=== PATIENT | female | born 1935 | race Caucasian/White ===

== ENCOUNTER 2022-08-17 10:48 | Outpatient (OUT) | payer MEDICARE, SELFPAY ==
--- NOTE | 2022-08-17 10:55 | XR_ITS ---
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 T score 0.7. WHO classification: Normal. Lowest bone mineral density left femoral neck measures 0.751 g/sq cm. T score -2.1. WHO classification: Osteopenia IMPRESSION: Osteopenia. Moderate fracture risk Electronically authenticated by: ANGE WHEELER Date: 08/18/2022 06:22
[2022-08-17 11:44] LABS: Basophils Absolute Auto 0.1 10^3/uL (0.0-0.1); Basophils Percent Auto 0.9 % (0.2-2.0); Eosinophils Absolute Auto 0.2 10^3/uL (0.0-0.7); Eosinophils Percent Auto 3.1 % (0.9-7.0); Hematocrit 40.1 % (36.0-48.0); Hemoglobin 13.5 g/dL (12.0-16.0); Immature Granulocytes Abs Auto 0.01 10^3/uL (0.00-0.03); Immature Granulocytes Pct Auto 0.2 % (0.0-0.5); Lymphocytes Absolute Auto 1.6 10^3/uL (1.2-3.8); Lymphocytes Percent Auto 24.3 % (20.5-60.0); Mean Corpuscular HGB Conc 33.7 g/dL (29.9-35.2); Mean Corpuscular Volume 89.1 fL (81.0-99.0); Mean Platelet Volume 9.7 fL (9.5-13.5); Monocytes Absolute Auto 0.5 10^3/uL (0.3-0.8); Monocytes Percent Auto 7.2 % (1.7-12.0); Neutrophils Absolute Auto 4.2 10^3/uL (1.4-6.5); Neutrophils Percent Auto 64.3 % (43.0-75.0); Platelet Count 296 10^3/uL (150-450); Red Cell Distribution Width 12.5 % (11.0-15.0); White Blood Count 6.5 10^3/uL (4.0-11.0)
[2022-08-17 12:00] LABS: Alanine Aminotransferase 21 U/L (14-59); Albumin Globulin Ratio 1.1; Albumin Level 3.6 g/dL (3.4-5.0); Alkaline Phosphatase 70 U/L (46-116); Anion Gap 12.5; Aspartate Amino Transferase 22 U/L (15-37); BUN Creatinine Ratio 13.5; Bilirubin Direct 0.2 mg/dL (0.0-0.2); Bilirubin Total 0.8 mg/dL (0.2-1.0); Calcium 8.8 mg/dL (8.5-10.1); Carbon Dioxide 26.5 mmol/L (21.0-32.0); Chloride 107 mmol/L (98-107); Chol HDL Ratio 2.8; Cholesterol 181 mg/dL (<=200); Estimated GFR (African America >60 (>=60); Estimated GFR (Non-African Ame 50 (>=60); Globulin 3.2 g/dL; Glucose 96 mg/dL (74-106); HDL Cholesterol 64 mg/dL (40-60); Sodium 142 mmol/L (136-145); Total Protein 6.8 g/dL (6.4-8.2); Triglycerides 163 mg/dL (<=150); VLDL CHOLESTEROL 32.6 mg/dL
[2022-08-17 12:17] LABS: Estimated Average Glucose 111 mg/dL; Glycohemoglobin A1C 5.5 % (4.5-6.2)
== END 2022-08-17 10:49 ==
LOC: RAD 10:50
PROVIDERS: PCP Family Medicine; Visit Provider Family Medicine
DX: M85.851 Other specified disorders of bone density and structure, right thigh (principal); Z79.899 Other long term (current) drug therapy; R73.03 Prediabetes; E78.5 Hyperlipidemia, unspecified
CPT/HCPCS: 36415; 77080; 80048; 80061; 80076; 82306; 83036; 85025

== ENCOUNTER 2023-02-22 13:15 | Emergency (ER) | payer MEDICARE, SELFPAY ==
[2023-02-22 13:20] VITALS: PULSE 78; RESP 20; TEMP 36.7; O2SAT 95; BMI 25.4
--- NOTE | 2023-02-22 13:28 | ED.GENADUL1 ---
HPI - General Adult General Chief complaint: Allergic Reaction Stated complaint: PAIN BACK LEGS/NEW MEDS Time Seen by Provider: 02/22/23 13:17 Source: patient Mode of arrival: walk-in Limitations: no limitations History of Present Illness HPI narrative: [age] female presents for pain and both of her lower legs posteriorly. She was put on prednisone and Levaquin about five days ago and she was told by the pharmacist that if she gets pain in her lower legs posteriorly she should go get it checked. There's been no injury and she's been able to walk without difficulty. This is a 2nd course of an antibiotic that she's been on for a cold. She's been having cold symptoms for about three weeks. Related Data Home Medications Medication Instructions Recorded Confirmed alendronate 70 mg tablet 70 mg PO .weekly 02/22/23 02/22/23 cyclosporine 0.05 % eye drops in a 1 drp ophthalmic (eye) DAILY 02/22/23 02/22/23 dropperette latanoprost 0.005 % eye drops 1 drp ophthalmic (eye) .qhs 02/22/23 02/22/23 levofloxacin 750 mg tablet 750 mg PO Q24H 02/22/23 02/22/23 pantoprazole 40 mg tablet,delayed 40 mg PO Q12H 02/22/23 02/22/23 release prednisone 10 mg tablet 10 mg PO .COMPLEX 02/22/23 02/22/23 simvastatin 40 mg tablet 40 mg PO .qhs 02/22/23 02/22/23 Allergies Allergy/AdvReac Type Severity Reaction Status Date / Time No Known Drug Allergies Allergy Verified 02/22/23 13:26 Review of Systems ROS Narrative A ten point review of systems is negative except as noted above. PFSH PFSH Social History Smoking status: Never smoker Exam Narrative Exam Narrative: Nurses note and vital signs reviewed and patient is not hypoxic. General: The patient appears well and in no apparent distress. Patient is resting comfortably on cart. Skin: Warm, dry, no pallor noted. There is no rash noted. Head: Normocephalic, atraumatic Eye: Normal conjunctiva, no drainage Ears, Nose, Mouth, and Throat: oral mucosa is moist. Nares patent. Cardiovascular: Regular Rate and Rhythm Respiratory: Patient is in no distress, no accessory muscle use, lungs are clear to auscultation, no wheezing, rales or rhonchi Back: non-tender GI: soft and nontender Musculoskeletal: no swelling in her calves. No swelling in her ankles. Achilles tendons are intact. Neurological: A&O, normal speech Psychiatric: Cooperative Constitutional Vital Signs, click to edit/add: Last Vital Signs Temp 98.1 F 02/22/23 13:20 Pulse 78 02/22/23 13:20 Resp 20 02/22/23 13:20 Pulse Ox 95 02/22/23 13:20 O2 Del Method Room Air 02/22/23 13:20 Course Vital Signs Vital signs: Vital Signs Temperature 98.1 F 02/22/23 13:20 Pulse Rate 78 02/22/23 13:20 Respiratory Rate 20 02/22/23 13:20 Pulse Oximetry 95 02/22/23 13:20 Oxygen Delivery Method Room Air 02/22/23 13:20 Temperature 98.1 F 02/22/23 13:20 Pulse Rate 78 02/22/23 13:20 Respiratory Rate 20 02/22/23 13:20 Pulse Oximetry 95 02/22/23 13:20 Oxygen Delivery Method Room Air 02/22/23 13:20 Medical Decision Making MDM Narrative Medical decision making narrative: her workup is negative. There is no clinical evidence of tendon rupture. We will discontinue the Levaquin. Findings are discussed with the patient. Differential Diagnosis Differential Diagnosis: tendon rupture, rhabdomyolysis, medication side effect Lab Data Lab results reviewed: Yes I reviewed the patient's lab results Labs: Lab Results 02/22/23 Range/Units 13:45 WBC 12.8 H (4.0-11.0) 10^3/uL RBC 4.63 (4.20-5.40) 10^6/uL Hgb 13.5 (12.0-16.0) g/dL Hct 41.3 (36.0-48.0) % MCV 89.2 (81.0-99.0) fL MCH 29.2 (26.7-34.0) pg MCHC 32.7 (29.9-35.2) g/dL RDW 12.7 (11.0-15.0) % Plt Count 327 (150-450) 10^3/uL MPV 9.6 (9.5-13.5) fL Neut % (Auto) 82.6 H (43.0-75.0) % Lymph % (Auto) 12.1 L (20.5-60.0) % [place] % (Auto) 3.9 (1.7-12.0) % Eos % (Auto) 0.1 L (0.9-7.0) % Baso % (Auto) 0.2 (0.2-2.0) % Neut # (Auto) 10.5 H (1.4-6.5) 10^3/uL Lymph # (Auto) 1.5 (1.2-3.8) 10^3/uL [place] # (Auto) 0.5 (0.3-0.8) 10^3/uL Eos # (Auto) 0.0 (0.0-0.7) 10^3/uL Baso # (Auto) 0.0 (0.0-0.1) 10^3/uL Abs Immat Gran (auto) 0.14 H (0.00-0.03) 10^3/uL Imm/Tot Granulo (auto) 1.1 H (0.0-0.5) % Sodium 140 (136-145) mmol/L Potassium 3.5 (3.5-5.1) mmol/L Chloride 102 (98-107) mmol/L Carbon Dioxide 27.9 (21.0-32.0) mmol/L Anion Gap 13.6 BUN 17.0 (7.0-18.0) mg/dL Creatinine 1.19 H (0.55-1.02) mg/dL Est GFR ( Amer) 52 L (>=60) Est GFR (Non-Af Amer) 43 L (>=60) BUN/Creatinine Ratio 14.3 Glucose 149 H (74-106) mg/dL Calcium 9.4 (8.5-10.1) mg/dL Myoglobin 65 (9-82) ng/mL Discharge Plan Discharge Chief Complaint: Allergic Reaction Clinical Impression: Adverse reaction to drug Patient Disposition: Home, Self-Care Time of Disposition Decision: 14:30 Condition: Good Mode of Transportation: Private Vehicle Prescriptions / Home Meds: No Action alendronate 70 mg tablet 70 mg PO .weekly cyclosporine 0.05 % dropperette 1 drp OPHTHALMIC (EYE) DAILY latanoprost 0.005 % drops 1 drp OPHTHALMIC (EYE) .qhs pantoprazole 40 mg tablet,delayed release (DR/EC) 40 mg PO Q12H prednisone 10 mg tablet 10 mg PO .COMPLEX Rx Instructions: 10 mg orally TAKE 6 TABLETS BY MOUTH ONCE DAILY FOR 3 DAYS THEN 4 ONCE DAILY FOR 3 DAYS THEN 2 ONCE DAILY FOR 3 DAYS THEN 1 ONCE DAILY FOR 3 DAYS; simvastatin 40 mg tablet 40 mg PO .qhs levofloxacin 750 mg tablet 750 mg PO Q24H Patient Comments: started on 02/17 Instructions: Adverse Drug Reaction (ED) Additional Instructions: discontinue Levaquin Stand Alone Forms: Portal Instructions Referrals: Jerald Faye MD [Primary Care Provider] - 1 week
[2023-02-22 13:56] LABS: Basophils Percent Auto 0.2 % (0.2-2.0); Eosinophils Percent Auto 0.1 % (0.9-7.0); Hematocrit 41.3 % (36.0-48.0); Hemoglobin 13.5 g/dL (12.0-16.0); Immature Granulocytes Abs Auto 0.14 10^3/uL (0.00-0.03); Immature Granulocytes Pct Auto 1.1 % (0.0-0.5); Lymphocytes Absolute Auto 1.5 10^3/uL (1.2-3.8); Lymphocytes Percent Auto 12.1 % (20.5-60.0); Mean Corpuscular HGB Conc 32.7 g/dL (29.9-35.2); Mean Corpuscular Hemoglobin 29.2 pg (26.7-34.0); Mean Corpuscular Volume 89.2 fL (81.0-99.0); Mean Platelet Volume 9.6 fL (9.5-13.5); Monocytes Absolute Auto 0.5 10^3/uL (0.3-0.8); Monocytes Percent Auto 3.9 % (1.7-12.0); Neutrophils Absolute Auto 10.5 10^3/uL (1.4-6.5); Neutrophils Percent Auto 82.6 % (43.0-75.0); Platelet Count 327 10^3/uL (150-450); Red Blood Count 4.63 10^6/uL (4.20-5.40); Red Cell Distribution Width 12.7 % (11.0-15.0); White Blood Count 12.8 10^3/uL (4.0-11.0)
[2023-02-22 14:18] LABS: Anion Gap 13.6; BUN Creatinine Ratio 14.3; Calcium 9.4 mg/dL (8.5-10.1); Carbon Dioxide 27.9 mmol/L (21.0-32.0); Chloride 102 mmol/L (98-107); Estimated GFR (African America 52 (>=60); Estimated GFR (Non-African Ame 43 (>=60); Glucose 149 mg/dL (74-106); Myoglobin 65 ng/mL (9-82); Potassium 3.5 mmol/L (3.5-5.1); Sodium 140 mmol/L (136-145)
== END 2023-02-22 14:47 | disposition home or self-care (01) ==
PROVIDERS: Emergency Provider Emergency Medicine; PCP Family Medicine
DX: M79.605 Pain in left leg (principal); M79.604 Pain in right leg; T36.8X5A Adverse effect of other systemic antibiotics, initial encounter
CPT/HCPCS: 36415; 80048; 83874; 85025; 99283

== ENCOUNTER 2023-09-21 09:21 | Outpatient (OUT) | payer MEDICARE, SELFPAY ==
--- OUTSIDE RECORDS SUMMARY | 2023-09-21 09:38 | XMS_ITS | CCD ---
Author Organization [facility] Care Team Providers Care Licensed Dispensing Optician Name Role Phone MICHAEL, DR JACINTO Tello Consulting Unavailabl e GRILLIS, DR JACINTO Tello Admitting Unavailabl e FAWWAD, SANCHEZ H Primary Care Unavailable GRILLIS, DR JACINTO Tello Attending Unavailabl e ZIEBER, DR MICHAEL Castillo Consulting Unavailable NADERER, DR JATINDER Rodriguez Attending Unavailable NADERER, DR JATINDER Rodriguez Consulting Unavailable NADERER, DR JATINDER Rodriguez Primary Care Unavailable NADERER, DR JATINDER Rodriguez Admitting Unavailable ZIEBER, DR MICHAEL Castillo Consulting Unavailable FAWWAD, SANCHEZ H Primary Care Unavailable FAWWAD, SANCHEZ H Admitting Unavailable FAWWAD, H Attending Unavailable FAWWAD, SANCHEZ H Consulting Unavailable FAWWAD, SANCHEZ H Primary Care Unavailable FAWWAD, SANCHEZ H Admitting Unavailable FAWWAD, SANCHEZ H Attending Unavailable NADERER, JATINDER Rodriguez Primary Care Unavailable Stalter, Bean Admitting Unavailable Stalter, Bean Attending Unavailable NADERER, JATINDER Attending Unavailable NADERER, JATINDER Attending Unavailable NADERER, JATINDER Attending Unavailable NADERER, JATINDER Attending Unavailable Problems Active Problems Problem Classification Problem Date Documented Da te Episodic/Chronic Abdominal hernia (1 source) Diaphragmatic hernia without obstruction or gangrene; Translations: [DIAPH HERNIA W/O OBST/GANGRENE] Onset: 03-12-2022 Episodic Disorders of lipid metabolism (1 source) Hyperlipidemia, unspecified; Translations: [HYPERLIPIDEMIA UNSPECIFIED] Onset: 08-06-2021 Chronic Esophageal disorders (4 sources) Gastro-esophageal reflux disease without esophagitis; Translations: [GERD WITHOUT ESOPHAGITIS] Onset: 03-10-2022 Chronic Other gastrointestinal disorders (1 source) Dysphagia, unspecified; Translations: [DYSPHAGIA UNSPECIFIED] Onset: 03-12-2022 Episodic Other gastrointestinal disorders (1 source) Personal history of other diseases of the digestive system; Translations: [PERSONAL HX OTH DZ DIGESTIVE SYSTEM] Onset: 03-12-2022 Episodic Unclassified (3 sources) LOW BACK PAIN, UNSPECIFIED; Translations: [LOW BACK PAIN, UNSPECIFIED] Onset: 10-01-2021 Past or Other Problems Problem Classification Problem Date Documented Da te Episodic/Chronic Diabetes mellitus without complication (4 sources) Prediabetes; Translations: [PREDIABETES] Onset: 07-30-2021 Episodic Other aftercare (1 source) Other vermin exterminator (current) drug therapy; Translations: [OTH RESIDENTIAL CURRENT DRUG THERAPY] Onset: 08-06-2021 Episodic Other gastrointestinal disorders (1 source) Other constipation; Translations: [OTHER CONSTIPATION] Onset: 08-06-2021 Episodic Unclassified (1 source) LOW BACK PAIN, UNSPECIFIED; Translations: [LOW BACK PAIN, UNSPECIFIED] Onset: 09-19-2021 Results Test Name Value Interpretation Reference Range Facility Coding Summaryon 06-09-2023 Coding Summary HTMLBase 64 RrzzumtmVSj8zSo+PGh lYWQ+CU9MHOLvL48iiY CvaZ2kS3ZBMAvEIhxvH XSXZRyXPaYfmpBbPN4h aXNjZXJu IC8+CR8zYBSdCxmeiWN mi6X9oSE7W57hiy3kOS cwoWP2WMBmLbOtgbeln 8nptHn3LWfyMirhGhRj NEXmgM60FMF4iC24Db8 3wAQhjHGti5wzjOx3Xv OeNIIwIGX0aLmbNKtsv 9QqXSDvD68poYRrf8H3 IGNvbGxhcHNlOyBlbXB 3dQ3oBKgronqso4kcll aiVtv8rv35aKGqo2S3s VC0I0EozkK7FVKbnEGa MzgehAKJbQ5ohdlpy1b ocelqNmIaNVCoHSv0JU n3WSAfeZqdHqAnWT16H FY2MZZlkvDfO4PmKKRd lFvfOsO5h7H9Hs9OF4T QIejvT6FXKHAINQiojU Q+SQ23jx80R4PsEjgkT so3VNJkMOB1pUC4jJ5y MSCqYRoqg9Q5qFG8O9F vtuGlqr5kc9niHOBfES vwT85arFMhm0A7LVYdv YQ5DHNcxRieXlNfmV25 Oyc+TXLkfWhoo5OcZre kw3agu1aihNj7IbdyNP QrwjZscFeyPOY1i4TwN g0sQTYjhSF4kMC9iN0l GlLnUrT5HPlhA839XgI lhVXbXbrwI86bN2UmkB A+OUNhTjc8BLQrlUawC B5yB5AqDZAbijuusIXa kExtGK7hONCxhrbbSSB aqH8sVTUzN8n9SrHwSy R1ZAvoU0OrOEZfkocmL p68mX5jDbJnSlL8JXfa M0VqewR9HBMhnLKoONl fSBC0W83aa8W8MOFjZJ PpRER3kFV7tU8yvOxvs jogbGVmdDsgdmVydGlj OGqfNNfsC119WPBuqGc nPkNvZGluZyBEYXRlOi AgMDQvMTAvMjAyNDwvd GQ+CWTvOHF7hKrlUIZn bGFmRIgaNt2viUljaPo sEM8bGLChefexMFGoiN 3hNLKnmMTxoQhbQG1vO YHqiwunh462NxVcVMD5 WDCvqBIvH2BcjU0wAmL iHSRkOSEsA3FmmWLqID chF065LJisYuT6GPTkt kLhA4TgRLEhfNckEjY5 z1F3Hd8Th6MhnnzlA4Y seDQxEuWxHeacNDs6S6 RkPjwvdHI+EV06AGAbT E43YBh2AUH8pRwzCKgx HWSmD2AjqN3jDaByKPQ kZGRkOyc+PHRhYmxlIH dpZHRoPScxMDAlJyBzd PruPI8kEp1zAKVxTMPy xGvokOPtLvTul6rrAIK iOYjaVU9ebQwuJ8AlkL I5TZXeg0a7Fg24M33kV 3JvdXA+AJAgyEG3bJD9 xH6hXqHfPgW8YVckZ38 5UcSlwVEdVkdgb5fbn9 rlhWk5NcH9KREcexQzh DouCXS8h2SiEr84Q24m IHdpZHRoPSIxNSUiIHZ flCdnss0akM6zLn7+PG KhiRR7rDD1gB1hGcVvW cR7TDbdT170FrHepFBm Ijxfz7lqk6jtbZd4PwD oOEZhiiHkxPbsTXQ2p2 PfUz94J6XhyYryb0JiZ dg3bv15rQJmb9F1pTY8 Y9EoBADpnvwfqCEolOk vPN3uVKLlzhikKZBnaK 6pYHOoL4n0WhIwFlC6E NojU7XlxuX9FGDnjSEg MXHpkAYTxE4stfqao2l epkneXcBzTOEbXSa2FY z1AXKewEbdPkXjEFT5U kP6VGO2gHOyiT7alWli cnixjP5zCls+OCF9uOI dmQBJXQ3wQegqhKH+PH UtCCH5dEsdKWauCJGwd W7rXSBwY2r5KtDgKeU3 XMnuV5LhrxV4AEZrpNO bWYGwoDTIbR1clkmei7 hcxanuJaChPREoXAj7D Ta4FJQauJfnZnJqOLY6 EqV7HFZ6zAVtkX9gfSg qgnetkO3qCwa+QmlydG quTQQ5LEm3P3TaLkf0O KWoaMuxWY9nfUXgNBbr Bk6ekCicsOvgSX3bQFH jyrmod742GzNfn2nvUS GyhQOmERmwPZW9W07kd 6R5ILMvYGDwNWU9tBS7 zI0cxQjwmftdjYVzmLe gdmVydGljYWwtYWxpZ2 97VBIelAalKeYrKWu3F 3FoVps2YENjkGwcIL7j cBBwGWseOn7coFszuGx wHP2lWXQizejfl488Gj Kco1jcOCHccNKvLFttF AO1K50xt5H9ZROmFTCf GXW6mRU4eV1ubCgteqr gbGVmdDsgdmVydGljYW qtUPhpK843MFOjwBwkZ jQzbTk7P2UzRcu3IARl dQuaAV8jgIHmFIzpHh0 hfSlqvJgbFM8hLAZfdw vxu402JfNyv9xyGMTgc XDrDFehNBM0V94ho7E1 JSPwQEWkJPE7cFV2xV4 hbGlnbjogbGVmdDsgdm BpyVhxPDcdYIpmO152U HRvcDsnPlBhdGllbnQg XMrwMEa2O7XwUhcxtRE +SB64FCCpIR25qOAdkQ Pcj8snuWa4MaXuARKpL YO4kEepWVvug5VhNTBo C82vmQUoc9G1KXRrqXw wnMGqLqMscNR1rR4rBP eorkizb8ksjdxdAbrlh 8zztu75eE98M21fJUra ZHRoPSIzMCUiIHZhbGl pid0psU3rJy3+PGNvbC V0sLX9cB7qESWmGeQ4M AtkA702BdJtaXAsYkmi e3jri4vmnOv9SjS4IPM gnmZqiNopNOY3f7LyLb 65N06gLEwhVGVxVTYuP KHoWIKlrFwdzs6ntY7j Ii8+KDYynYH5wIS1uP4 fEcFkVaA9QQysF253Iy PdxPQnMeuaL89hI9Xvp XA+UPHuVwr7IZGrvNle MC1phWScPXiyWo1aHUT 8NmMsArVrZGkiL9BcMR CyzahomdcjfJH9ILJyE YWwpO83Yq7jhCmeVLJp fIYOoN8ecnnci8dgeit zOsQxZGBiQFz7XGd2WV XogLmmDtCtYDU5VrS9E KS5wBMqaT8boLaorasi pW8lK7PbZZZlghooDq7 2xK6fVwBdNiY2TAswId c+Z63QSDZCKKISXM4AW MDRTF60ZP36wZRnr5I3 uNT4I9GiHHDjvmmuyqs bzIZ2EYFlJLGclM86mA ZsIQnbOe2ab7J6j826E YQwOBGqoO92Ap7gxJpu XVEuwXLRxT6zdzmlv3y chkjyTbQtJMChIIr6NY z9YEGtvUobNiLgLRJ9Y bI9CIB2zTDlvW9ctIle ovcrpL2dZpu+MDQvMDg vMTkzNzwvdGQ+PHRkIH P6yFnuISsvOYLmeL9aQ XGqY2o8CmZuQoV4QRon N4XkTHEnorinSw72yZ5 qOpJqVlM4SOyrV5Hxez R1ZLLsuBJbNHhgLYH3O 00tz1Q2XIBzTJApCTJ9 gKL4iA3qxZwosipzrSY mdDsgdmVydGljYWwtYW udJ095FUDfjJqgUcb3S NnmKWZaDJ94MQ86yJRs l9B2bJM1L5HuGRGvkgt hbvwovCV2UPDdGWIrlV 07ePElNDgzKl9ui4L7y 806HCVdCGYrwX70Vv9i pApwGAPomRXBmO2piry gm9rrfwckWnAjBBJyLV o6JYk3BJGztVaxWxZwM PK5QjE8XIQ0qAOyyT1k qFqovwbwoK8yUtu+RkV KHLsRLM80CX84oNEnf2 A4mFI7R3SvBVZpdldxx msgyVV0QOXdHKKlrR66 mUZrNFfgMu2vl3E7a58 5NKYrBXVohW65Kr7xjB bpLIPvmNFOqL0rbotht 9qisnxcOlZrVBGwPSi8 ZHd5VKMonVylYbPfMBD 2XbN3WIM6dDOqqC5kjG ogoqrspL7nEna+RW1lc imolyC6FJ51SK29F5Hi PjwvdGFibGU+PHRhYmx lIHdpZHRoPScxMDAlJy IwfObfQV2yNk0bCJAiY OKzyKpnqKDyCkRbc7jk MDAfNSugRI6prUktZ8F jrPX7ITGlm5c5Rw21C7 5eZ3UuoZB+VLIawMV2m JB7lO8qIaBeMuL9WUss W234BxJcoSUqSfeqs9x hg0ignKk2CcHwHUJptp NbxCgwFFZ5t2PwKn28A 29sIHdpZHRoPSIyMCUi PVUotLqchq7viY5nYw2 +NMNhuWQ5rRF3bH2jYz DlNyT7NMovI199BpNll LZiBxtpC81iD4LewJX+ TIBgFov8IZKfrFkrJE3 ijQFyXHwlKi1kKGP6So YwFfLyVKutV4GlUDRsw dmfasynpJE7HQUsSQWc vO22Jc4dkHatUh9cHIU gMZI7EFKbzROwH1RofK 2tDyTcMTRtGWAhP9Fsj TOfXMysI316WKdoFeT6 FNRckoMzT8HmOKUoaVw yRtH4s6P2Qq2FqGpgvE OdWB5oKeDkJKv2E5EyT yt5ZZGelVwxVC1riCJn WVfrSn7jrAeunIinFJ9 pJPQiiseaa944JhBta7 bjUJUqoXSfGHzwWBC2Y 96vq6N0CIDoCXUqJLZ3 bFB7bQ0hlHxaylbjvVS mdDsgdmVydGljYWwtYW ftT329MIUeoCbbSlCUW by3P9TqYvk3EBQnaScc YX9azBSjRKvgMs4znTq fiKmaOT1iLSFjkrtke7 29QwAmc5wbAMEtnZBzA KldTLO5V06he5D6WAOt PJIbZZJ6kRK6hF5mwBo nbjogbGVmdDsgdmVydG tbFEylQPcmN767VSZue SxcCx2OCgb9Z2QyZzr9 PQYqcOwnJN3aeIYsBYt dXj9vdPdlhPtrMX8tKX Qtiuwin142NsCkb3kuP CRrlRLfELylUGV8T93l q1F7PPNnCOBjHHM1sJT 6wT8xzHblrzyruXCmcY sgdmVydGljYWwtYWxpZ 246IHRvcDsnPlBheWVy OjwvdGQ+XO58yr10Q4J uJfsoKff8ANRkORT4pP W4vJ2xNFUdKXhou1N4k ME2R4CgeeRptz6jx2tt YXB (more content not included)... Normal [facility] CT Head or Brain w/o Contras ton 06-04-2023 CT Head or Brain w/o Contrast EXAMINATION: CT Head or Brain w/o Contrast, , 06/04/2023 1:27 PM EDT INDICATION: Fall, head injury HISTORY: Ordering Provider Reason for Exam: Technologist Note: Additional: COMPARISON: None. TECHNIQUE: CT scan of the head was performed without IV contrast. CT dose reduction technique was used, including Automated Exposure Control. FINDINGS: Paranasal sinuses are clear. Mastoid air cells are clear. Skull base is intact. There is some soft tissue swelling of the scalp in the frontal region. No acute skull fracture. Nasopharynx is normal. Prior cataract surgery. Mild generalized brain atrophy. No hydrocephalus. No mass effect. No shift of midline. No acute hemorrhage. No mass. [place] matter and white matter differentiation is intact. IMPRESSION: 1. No acute intracranial findings. No acute intracranial hemorrhage. 2. No skull fracture. Final Dictated by: Franc Caballero MD Dictated DT/TM: 06/04/23 1:53 Signed (Electronic Signature): Franc Caballero MD 06/04/23 2:35 pm Technologist: LT MISSY [facility] CT Spine Cervical w/o Contra ston 06-04-2023 CT Spine Cervical w/o Contrast EXAM TYPE: CT Spine Cervical w/o Contrast EXAM DATE AND TIME: 06/04/2023 1:27 PM EDT INDICATION: 87 years old Female with pain following trauma COMPARISON: None. TECHNIQUE: CT imaging of the cervical spine was obtained without contrast. Dose reduction techniques were achieved by using automated exposure control and/or adjustment of mA and/or kV according to patient size and/or use of iterative reconstruction technique. FINDINGS: There is straightening of the cervical lordosis. No subluxation. Vertebral body heights are maintained. No fracture. Craniocervical junction is normal in appearance. Atlantodental distance is not widened. No prevertebral soft tissue swelling. Moderate multilevel degenerative disc and facet arthropathy is present throughout the cervical spine. No CT evidence of severe spinal canal stenosis IMPRESSION: No acute fracture or traumatic malalignment. Final Dictated by: Sebas Ochoa MD Dictated DT/TM: 06/04/23 1:50 Signed (Electronic Signature): Sebas Ochoa MD 06/04/23 1:52 pm Technologist: LT MISSY [facility] ED Clinical Summaryon 2023 ED Clinical Summary [facility] - Emergency Department [address] [place] [id number] ED Clinical Summary PERSON INFORMATION Name: ADAM GUZMAN Age: 87 Years Sex: FEMALE : 1935 MRN: Acct#: Visit Reason: FALL- HEAD/NOSE LACERATION Arrival: 06/04/2023 12:48:15 Discharge: 06/04/2023 14:38:00 LOS: 000 01:50 Check In: 06/04/2023 12:48:15 Checkout:06/04/2023 14:38:00 Address: [address] [place] [id number] PCP: JATINDER HAZEL PROVIDER INFORMATION Provider Role Assigned Unassigned Stalter, Bean MD ED Provider 06/04/2023 12:54:32 Nury Mclaughlin BIT BENDER Nurse 06/04/2023 13:13:36 VITALS INFORMATION Vital Sign Triage Latest Temperature Tympanic Temperature Temporal Artery Pulse Rate O2 Sat 93 % 93 % Respiratory Rate 18 br/min 18 br/min Blood Pressure /98 mmHg /98 mmHg MEDICAL INFORMATION Medications Given: Medication Dose Route tetanus-diphth toxoids (Td) adult/adol (tetanus-diphth toxoids (Td)adult/adol) 0.5 mL Intramuscular bacitracin topical 500 unit(s) Topical bacitracin topical 500 unit(s) Topical Allergy Information: No known allergies PHYSICIAN DOCUMENTATION DISCHARGE INFORMATION: Discharge Disposition: Home Discharge Location: Home PATIENT EDUCATION INFORMATION Instructions: Sutured Wound Care, Shzb-xr-Gama; Abrasion, Nehx-tu-Upkr; Hypertension, Adult, Ydac-cm-Isvc; Facial Laceration, Ktlv-ve-Mwqp Follow-Up: With: Address: When: Follow up with primary care provider Within 3 to 5 days DIAGNOSIS: 1:Laceration of face; 2:Abrasion of face; 3:Abrasion of hand and fingers; 4:Abrasion of right knee; 5:Elevated blood pressure reading; Abrasion of unspecified finger, initial encounter Patient Understands: Yes - Patient/family/intensive care ambulance paramedic verbalizes understanding of instructions given Comment: [facility] ED Note-Nursingon 06-04-2023 ED Note-Nursing Pt ambulatory back to ED room 8 with at bedside. Pt C/O tripping and falling. Pt has skin tears on Bilateral hands, Rt knee, across the bridge of pt nose and above her nose on reji. Pt states she was not dizzy before the fall. Pt is A/Ox4. Pt denies any pain at this time.Pt denies any other symptoms at this time. Pt states just worried about my nose [facility] ED Patient Summaryon 024 ED Patient Summary [facility] - Emergency Department [address] [place], [place] [id number] PATIENT DISCHARGE INSTRUCTIONS Patient Information Name: ADAM GUZMAN Age: 87 Years Date of : 1935 [facility]: [id number] Reason For Visit: FALL- HEAD/NOSE LACERATION Arrival Time: 06/04/2023 12:48:15 Primary Care Physician: JATINDER HAZEL Attending Physician: Bean Starkey MD Comment: Visit Diagnosis: Diagnoses This Visit Abrasion of face (S00.81XA) Abrasion of hand and fingers (S60.519A) Abrasion of right knee (S80.211A) Abrasion of unspecified finger, initial encounter (S60.419A) Elevated blood pressure reading (R03.0) Laceration of face (S01.81XA) The [facility] at [facility] is open Wednesday through Wednesday from 9A to 6P and Wednesday and Wednesday from 9A to 5P Prescription Information: If you have been given a prescription for narcotics, seek immediate medical attention if you have any difficulty breathing or any sudden status changes such as confusion and sleepiness. If you or anyone you know is experiencing suicidal thoughts, mental health, alcohol and/or drug addiction problems; contact the [facility] 21/09 Crisis Hotline -Text 2OWGW ai 449223. If you received any narcotics, sedation, or any other medication that causes drowsiness for the next 24 hours, unless otherwise directed: ? Do not drive a car. ? Do not operate machinery such as power tools, lawn mowers, drills, sewing machines, or stoves ? Avoid alcoholic beverages and drugs for allergies, nerves, or sleep ? Do not make important personal or business decisions or sign any legal documents With: Address: When: Follow up with primary care provider Within 3 to 5 days Medication Information: The exam and treatment you received today in the [facility] Emergency Department were for an urgent problem and are not intended as complete care. It is important for you to follow up with a doctor, nurse practitioner, or physician?s assistant director for ongoing care. If your symptoms become worse or you do not improve as expected and you are unable to reach your usual health care provider, you should return to the Emergency Department, we are available 24 hours a day. For those patients who have received Radiology results, the interpretation of your X-ray as given to you by our Emergency Department physician is only a preliminary report. The Radiologist will review your films and if there is a change in the diagnosis you will be notified by phone. Please make sure you have provided a working phone number so we can reach you if necessary. In the event that you had a lab culture while you were a patient in the Emergency Department, you will be notified by phone if there is a need to change your antibiotic. Please make sure you have provided a working phone number so we can reach you if necessary. [facility] Emergency Department has provided you with a complete list of medications post discharge. Please inform your investment executive/provider of your visit and for further instruction on these medications. Any specific questions regarding your chronic medications and dosages should be discussed with your primary care physician(s) and/or pharmacist. Additional medications on your home medication list not specifically addressed. Please contact the ordering physician if you have questions about these medications. alendronate (alendronate 70 mg oral tablet) dorzolamide ophthalmic latanoprost ophthalmic (latanoprost 0.005% ophthalmic solution) 1 Drops Ophthalmic (the eye) once a day (at bedtime). pantoprazole 40 Milligram Oral (given by mouth) every day. simvastatin (simvastatin 40 mg oral tablet) Visit Information Allergies: Substance Reaction Symptoms Type Comments No known allergies Drug Vital Signs: Vitals and Measurements this Visit (last charted value for your 06/04/2023 visit) Vital Signs This Visit Temperature Oral: 36.4 DegC Heart Rate Monitored: 74 bpm Respiratory Rate: 18 br/min Systolic Blood Pressure: 190 mmHg Diastolic Blood Pressure: 77 mmHg SpO2: 93 % Oxygen Therapy: Room air Measurements This Visit Height/Length Measured: 165 cm Weight Measured: 77.1 kg Weight Dosin.100 kg Body Mass Index: 28.32 kg/m2 Problems List: Problem Onset Comments Facial laceration Fall Patient Education Sutured Wound Care Suture removal in 5 to 7 days, monitor for signs of infection. Sutures are stitches that can be used to close wounds. Some stitches break down as they heal (absorbable). Other stitches need to be taken out by your doctor (nonabsorbable). Taking good care of your wound can help to prevent pain and infection. It can also help your wound heal more quickly. Follow instructions from your doctor about how to care for your sutured wound. Supplies needed: ? Soap and water. ? A clean, dry towel. ? Solution to clean your wound, if needed. ? A (more content not included)... [facility] UA [id number] 06-04-2023 UA RBC None Seen [facility] Comment on above: Order Comment: Urina lysis Microscopic order added on by [employer] Expert Rules system. Performed By: #### 5 [id number], [id number] #### [facility] (DEFAULT) [address] [place] [address] UA WBC None Seen [facility] Comment on above: Order Comment: Urina lysis Microscopic order added on by [employer] Rules system. Performed By: #### 5 [id number], [id number] #### [facility] (DEFAULT) [address] [place] [address] UA Amorph. 1+ [facility] Comment on above: Order Comment: Urina lysis Microscopic order added on by [employer] Rules system. Performed By: #### 5 [id number], [id number] #### [facility] (DEFAULT) [address] [place] [address] UA Bacteria Rare [facility] Comment on above: Order Comment: Urina lysis Microscopic order added on by [employer] Rules system. Performed By: #### 5 [id number], [id number] #### [facility] (DEFAULT) [address] [place] [address] UA CA Ox Crystal 2+ [facility] Comment on above: Order Comment: Urina lysis Microscopic order added on by [employer] Rules system. Performed By: #### 5 [id number], [id number] #### [facility] (DEFAULT) [address] [place] [address] UA w Culture if Ind Standard on 06-04-2023 Breakpoint UA [facility] Comment on above: Performed By: #### 5 [id number], [id number] #### [facility] (DEFAULT) [address] [place] [address] Color (U) Yellow [facility] Comment on above: Performed By: #### 5 [id number], [id number] #### [facility] (DEFAULT) [address] [place] [address] Culture? No Normal [facility] Comment on above: Result Comment: Resu lt created by rule GL_MAGR_ADD_UA_CULT Result created by rule GL_MAGR_ADD_UA_CULT1 Performed By: #### 5 [id number], [id number] #### [facility] (DEFAULT) [address] [place] [address] Glucose (U) [Mass/Vol] Negative Normal [facility] Comment on above: Performed By: #### 5 [id number], [id number] #### [facility] (DEFAULT) [address] [place] [address] Ketones Ql (U) TRACE Normal [facility] Comment on above: Performed By: #### 5 [id number], [id number] #### [facility] (DEFAULT) [address] [place] [address] Micro? Indicated Invalid Interpretation Code [facility] Comment on above: Result Comment: Resu lt created by rule GL_MAGR_ADD_UA_MICRO Performed By: #### 5 [id number], [id number] #### [facility] (DEFAULT) [address] [place] [address] UA Bilirubin Negative Normal [facility] Comment on above: Performed By: #### 5 [id number], [id number] #### [facility] (DEFAULT) [address] [place] [address] UA Blood Negative Normal NEGATIVE [facility] Comment on above: Performed By: #### 5 [id number], [id number] #### [facility] (DEFAULT) [address] [place] [address] UA Clarity CLEAR Normal CLEAR [facility] Comment on above: Performed By: #### 5 [id number], [id number] #### [facility] (DEFAULT) [address] [place] [address] UA Leuk Est Negative Normal NEGATIVE [facility] Comment on above: Performed By: #### 5 [id number], [id number] #### [facility] (DEFAULT) [address] [place] [address] UA Nitrite Negative Normal NEGATIVE [facility] Comment on above: Performed By: #### 5 [id number], [id number] #### [facility] (DEFAULT) [address] [place] [address] UA pH 6.0 Normal 5-8 [facility] Comment on above: Performed By: #### 5 [id number], [id number] #### [facility] (DEFAULT) [address] [place] [address] UA Protein TRACE Abnormal NEGATIVE [facility] Comment on above: Performed By: #### 5 [id number], [id number] #### [facility] (DEFAULT) [address] [place] [address] UA Spec Grav >=1.030 Normal 1.001-1.035 [facility] Comment on above: Performed By: #### [id number] #### [facility] (DEFAULT) [address] [place] [address] UA Urobilinogen 0.2 mg/dL Normal 0.2-1.0 [facility] Comment on above: Performed By: #### [id number], [id number] #### [facility] (DEFAULT) [address] [place] [address] Urine Source Clean Catch Normal [facility] Comment on above: Performed By: #### [id number] #### [facility] (DEFAULT) [address] [place] [address] XR Knee Complete Righton XR Knee Complete Right EXAM: Right knee HISTORY: Pain and abrasion after a fall. TECHNIQUE: 4 views of the right knee were obtained. FINDINGS: There is no evidence of fracture or dislocation. There are no suspicious bone lesions. There are relatively mild degenerative changes in the medial compartment and patellofemoral compartment. Calcified plaque is seen in the popliteal artery. Soft tissues are normal. IMPRESSION: No acute findings. Relatively mild degenerative changes. Final Dictated by: Jacinto Forman MD Dictated DT/TM: 06/04/23 2:01 Signed (Electronic Signature): Jacinto Forman MD 06/04/23 2:02 pm Technologist: Diandra REYNOSO [facility] XR LSPINE 2_3 VIEWSon 2021 XR LSPINE 2_3 VIEWS EXAMINATION: XR LSPINE 2_3 VIEWS HISTORY: Low back pain COMPARISON: XR lumbar spine 12/29/2012 FINDINGS: BONES: No fracture spondylolisthesis. Moderate degenerative facet arthropathy L5-S1. DISC SPACES: Moderate-marked narrowing L3-L4, L4-L5, L5-S1. Mild/moderate narrowing L1-L2, L2-L3. PARASPINOUS: Negative. No paraspinous abnormality is seen. OTHER: Negative. IMPRESSION: 1. Multilevel moderate-marked degenerative changes of the lumbar spine; progressed since prior study. 2. No appreciable acute abnormality. Electronically authenticated by: MICHAEL WHITE Date: 2021-09-17 21:47 Normal [facility] CBC AUTO DIFFon 07-30-2021 BASO # 0.1 103/ul Normal 0.0-0.1 [facility] Comment on above: Performed By: #### C BC #### [facility] [address] [place] [address] Dr. Issa Last Basophils/100 WBC (Bld) 1.1 % Normal 0.2-2.0 [facility] [facility] Comment on above: Performed By: #### C BC #### [facility] [address] [place] [address] Dr. Issa Last EO # 0.2 103/ul Normal 0.0-0.7 [facility] Comment on above: Performed By: #### C BC #### [facility] [address] [address] [address] Issa Last Eosinophils/100 WBC (Bld) 2.7 % Normal 0.9-7.0 [facility] Comment on above: Performed By: #### C BC #### [facility] [address] [address] [address] Issa Last Erythrocyte distribution width (RBC) [Ratio] 12.6 % Normal 11.0-15.0 [facility] Comment on above: Performed By: #### C BC #### [facility] [address] [place] [address] Dr. Issa Last Hematocrit (Bld) [Volume fraction] 41.9 % Normal 36.0-48.0 [facility] Comment on above: Performed By: #### C BC #### [facility] [address] [place] [address] Dr. Issa Last Hemoglobin (Bld) [Mass/Vol] 13.5 g/dL Normal 12.0-16.0 [facility] Comment on above: Performed By: #### C BC #### [facility] [address] [place] [address] Dr. Issa Last IG # 0.02 10e3/ul Normal 0.00-0.03 [facility] Comment on above: Performed By: #### C BC #### [facility] [address] [place] [address] Dr. Issa Last IG % 0.3 % Normal 0.0-0.5 [facility] Comment on above: Performed By: #### C BC #### [facility] [address] [place] [address] Dr. Issa Last LYMPH # 1.7 103/ul Normal 1.2-3.8 [facility] Comment on above: Performed By: #### C BC #### [facility] [address] [place] [address] Dr. Issa Last Lymphocytes/100 WBC (Bld) 25.2 % Normal 20.5-60.0 [facility] Comment on above: Performed By: #### C BC #### [facility] [address] [place] [address] Dr. Issa Last MANUAL DIFF REQ NO Normal [facility] Comment on above: Performed By: #### C BC #### [facility] [address] [place] [address] Dr. Issa Last MCH (RBC) [Entitic mass] 29.8 pg Normal 26.7-34.0 [facility] Comment on above: Performed By: #### C BC #### [facility] [address] [place] [address] Dr. Issa Last MCHC (RBC) [Mass/Vol] 32.2 g/dL Normal 29.9-35.2 [facility] Comment on above: Performed By: #### C BC #### [facility] [address] [address] [address] Issa Last MCV (RBC) [Entitic vol] 92.5 fL Normal 81.0-99.0 [facility] Comment on above: Performed By: #### C BC #### [facility] [address] [address] [address] Issa Last MONO # 0.5 103/ul Normal 0.3-0.8 [facility] Comment on above: Performed By: #### C BC #### [facility] [address] [place] [address] Dr. Issa Last Monocytes/100 WBC (Bld) 6.9 % Normal 1.7-12.0 [facility] Comment on above: Performed By: #### C BC #### [facility] [address] [place] [address] Dr. Issa Last NEUT # 4.2 103/ul Normal 1.4-6.5 [facility] Comment on above: Performed By: #### C BC #### [facility] [address] [place] [address] Dr. Issa Last Neutrophils/100 WBC (Bld) 63.8 % Normal 43.0-75.0 [facility] Comment on above: Performed By: #### C BC #### [facility] [address] [place] [address] Dr. Issa Last Platelet mean volume (Bld) [Entitic vol] 10.3 fL Normal 9.5-13.5 [facility] Comment on above: Performed By: #### C BC #### [facility] [address] [place] [address] Dr. Issa Last PLT 278 103/ul Normal 150-450 [facility] Comment on above: Performed By: #### C BC #### [facility] [address] [place] [address] Dr. Issa Last RBC 4.53 106/ul Normal 4.20-5.40 [facility] Comment on above: Performed By: #### C BC #### [facility] [address] [address] [address] Issa Last WBC 6.6 103/ul Normal 4.0-11.0 [facility] Comment on above: Performed By: #### C BC #### [facility] [address] [address] [address] Issa Last GLYCOHEMOGLOBIN A1Con 2021 ADA RECOMMENDATION SEE BELOW Normal [facility] Comment on above: Result Comment: ADA RECOMMENDED LIMIT 4.0 - 6.0 ADA THERAPEUTIC TARGET < 7.0 ACTION SUGGESTED > 7.0 Performed By: #### A 1C #### [facility] [address] [place] [address] Dr. Issa Last Glucose [Mass/Vol] 108 mg/dL Normal [facility] Comment on above: Performed By: #### A 1C #### [facility] [address] [place] [address] Dr. Issa Last HbA1c (Bld) [Mass fraction] 5.4 % Normal 4.5-6.2 [facility] Comment on above: Performed By: #### A 1C #### [facility] [address] [place] [address] Dr. Issa Last LIPID PROFILEon 07-30-2021 CHOL-HDL RATIO NORM SEE BELOW Normal [facility] Comment on above: Result Comment: 3.3 - 4.4 LOW RISK 4.4 - 7.1 AVERAGE RISK 7.1 - 11.0 MODERATE RISK >11.0 HIGH RISK Performed By: #### L IVER, BMP, LIPID, TSH #### [facility] [address] [address] [address] Issa Last Cholesterol [Mass/Vol] 157 mg/dL Normal <=200 [facility] Comment on above: Performed By: #### L IVER, BMP, LIPID, TSH #### [facility] [address] [address] [address] Issa Last Cholesterol in HDL [Mass/Vol] 65 mg/dL Critically high 40-60 [facility] Comment on above: Performed By: #### L IVER, BMP, LIPID, TSH #### [facility] [address] [address] [address] Issa Last Cholesterol in LDL [Mass/Vol] 66.6 mg/dL Normal [facility] Comment on above: Performed By: #### L IVER, BMP, LIPID, TSH #### [facility] [address] [address] [address] Issa Last Cholesterol.total/Ch olesterol in HDL [Mass ratio] 2.4 {ratio} Normal [facility] Comment on above: Performed By: #### L IVER, BMP, LIPID, TSH #### [facility] [address] [address] [address] Issa Last HDL NORMAL > or = 60 mg/dl - LOW CARDIOVASCULAR RISK <40 mg/dl - HIGH CARDIOVASCULAR RISK Normal [facility] Comment on above: Performed By: #### L IVER, BMP, LIPID, TSH #### [facility] [address] [address] [address] Issa Last LDL CALC NORMAL SEE BELOW Normal [facility] Comment on above: Result Comment: <100 mg/dl OPTIMAL 100 - 129 mg/dl NEAR OR ABOVE OPTIMAL 130 - 159 mg/dl BORDERLINE HIGH 160 - 189 mg/dl HIGH >190 mg/dl VERY HIGH Performed By: #### L IVER, BMP, LIPID, TSH #### [facility] [address] [address] [address] Issa Last Triglyceride [Mass/Vol] 127 mg/dL Normal <=150 [facility] Comment on above: Performed By: #### L IVER, BMP, LIPID, TSH #### [facility] [address] [address] [address] Issa Last VLDL CALC 25.4 mg/dL Normal [facility] Comment on above: Performed By: #### L IVER, BMP, LIPID, TSH #### [facility] [address] [address] [address] Issa Last LIVER PROFILEon 07-30-2021 Albumin [Mass/Vol] 3.9 g/dL Normal 3.4-5.0 [facility] Comment on above: Performed By: #### L IVER, BMP, LIPID, TSH #### [facility] [address] [place] [address] Dr. Issa Last Albumin/Globulin [Mass ratio] 1.3 {ratio} Normal [facility] Comment on above: Performed By: #### L IVER, BMP, LIPID, TSH #### [facility] [address] [place] [address] Dr. Issa Last ALP [Catalytic activity/Vol] 56 U/L Normal 46-116 [facility] Comment on above: Performed By: #### L IVER, BMP, LIPID, TSH #### [facility] [address] [place] [address] Dr. Issa Last ALT [Catalytic activity/Vol] 24 U/L Normal 14-59 [facility] Comment on above: Performed By: #### L IVER, BMP, LIPID, TSH #### [facility] [address] [place] [address] Dr. Issa Last AST [Catalytic activity/Vol] 17 U/L Normal 15-37 [facility] Comment on above: Performed By: #### L IVER, BMP, LIPID, TSH #### [facility] [address] [place] [address] Dr. Issa Last BILI, CONJUGATED 0.2 mg/dL Normal 0.0-0.2 [facility] Comment on above: Performed By: #### L IVER, BMP, LIPID, TSH #### [facility] [address] [place] [address] Dr. Issa Last Bilirubin [Mass/Vol] 0.8 mg/dL Normal 0.2-1.0 [facility] Comment on above: Performed By: #### L IVER, BMP, LIPID, TSH #### [facility] [address] [place] [address] Dr. Issa Last Globulin (S) [Mass/Vol] 3.0 g/dL Normal [facility] Comment on above: Performed By: #### L IVER, BMP, LIPID, TSH #### [facility] [address] [address] [address] Issa Last Protein [Mass/Vol] 6.9 g/dL Normal 6.4-8.2 [facility] Comment on above: Performed By: #### L IVER, BMP, LIPID, TSH #### [facility] [address] [place] [address] Dr. Issa Last PROF CHEM 8 (BAS METB)on Anion gap [Moles/Vol] 13.1 mmol/L Normal [facility] Comment on above: Performed By: #### L IVER, BMP, LIPID, TSH #### [facility] [address] [place] [address] Dr. Issa Last Calcium [Mass/Vol] 8.8 mg/dL Normal 8.5-10.1 [facility] Comment on above: Performed By: #### L IVER, BMP, LIPID, TSH #### [facility] [address] [place] [address] Dr. Issa Last Chloride [Moles/Vol] 108 mmol/L Critically high 98-107 [facility] Comment on above: Performed By: #### L IVER, BMP, LIPID, TSH #### [facility] [address] [place] [address] Dr. Issa Last CO2 [Moles/Vol] 27.2 mmol/L Normal 21.0-32.0 [facility] Comment on above: Performed By: #### L IVER, BMP, LIPID, TSH #### [facility] [address] [place] [address] Dr. Issa Last Creatinine [Mass/Vol] 0.88 mg/dL Normal 0.55-1.02 [facility] Comment on above: Performed By: #### L IVER, BMP, LIPID, TSH #### [facility] [address] [place] [address] Dr. Issa Last EGFR-AF [facility]CIAN >60 Normal >=60 [facility] Comment on above: Performed By: #### L IVER, BMP, LIPID, TSH #### [facility] [address] [address] [address] Issa Last EGFR-NON AF [facility] >60 Normal >=60 [facility] Comment on above: Performed By: #### L IVER, BMP, LIPID, TSH #### [facility] [address] [address] [address] Issa Last Glucose [Mass/Vol] 99 mg/dL Normal 74-106 [facility] Comment on above: Performed By: #### L IVER, BMP, LIPID, TSH #### [facility] [address] [place] [address] Dr. Issa Last Potassium [Moles/Vol] 4.3 mmol/L Normal 3.5-5.1 [facility] Comment on above: Performed By: #### L IVER, BMP, LIPID, TSH #### [facility] [address] [place] [address] Dr. Issa Last Sodium [Moles/Vol] 144 mmol/L Normal 136-145 [facility] Comment on above: Performed By: #### L IVER, BMP, LIPID, TSH #### [facility] [address] [address] [address] Issa Last Urea nitrogen [Mass/Vol] 17.0 mg/dL Normal 7.0-18.0 [facility] Comment on above: Performed By: #### L IVER, BMP, LIPID, TSH #### [facility] [address] [place] [address] Dr. Issa Last Urea nitrogen/Creatinine [Mass ratio] 19.3 mg/mg Normal [facility] Comment on above: Performed By: #### L IVER, BMP, LIPID, TSH #### [facility] [address] [place] [address] Dr. Issa Last TSHon 07-30-2021 TSH 1.613 uIU/mL Normal 0.358-3.[address] [facility] Comment on above: Performed By: #### L IVER, BMP, LIPID, TSH #### [facility] [address] [place] [address] Dr. Issa Last TSH RANGE SEE BELOW Normal [facility] Comment on above: Result Comment: <0.3 4 UIU/ml HYPERTHYROID 0.34-5.60 UIU/ml EUTHYROID >5.60 UIU/ml HYPOTHYROID Performed By: #### L IVER, BMP, LIPID, TSH #### [facility] [id number] Issa Last Encounters Encounter Date Encounter Type Care Provider Facility Start: 08-25-2023 End: 08-25-2023 ambulatory JATINDER HAZEL Not Available Start: 06-11-2023 End: 06-11-2023 ambulatory AJTINDER HAZEL Not Available Start: 06-04-2023 End: 06-04-2023 Emergency department patient visit JATINDER HAZEL Facility:[facility] Start: 03-09-2023 End: 03-09-2023 ambulatory JATINDER HAZEL Not Available Start: 02-17-2023 End: 02-17-2023 ambulatory JATINDER HAZEL Not Available Start: 02-03-2023 End: 02-03-2023 ambulatory JATINDER HAZEL Not Available Start: 03-10-2022 End: 03-11-[address] JACINTO RODRIGUEZ Facility:[facility] Start: 09-19-2021 End: 10-22-2021 ambulatory SHAIKH Arjun BERMUDEZ Facility:[facility] Start: 09-17-2021 End: 09-18-[address] MICHAEL WHITE Facility:[facility] Start: 07-30-2021 End: 07-31-[address] JATINDER HAZEL Facility:[facility] Payers Date Payer Category Payer Medicare [id number] 1935 Unknown [id number] 1935 Unknown [id number] 1936 Unknown [id number] 1936 Unknown [id number] 1936 Unknown [id number] [id number] 1936 Unknown [id number] [id number] [id number] 1936 Unknown [id number] 2.16.84 [id number] 1936 Unknown [id number] 2.16.84 [id number] 1936 Unknown [id number] 1936 Unknown [id number] Clinical Note 06-04-2023 Note Date & Type Note Facility 06-04-2023 Note [employer] Cardiovascular Hypertension, Adult Blood pressure 190/77 Your blood pressure was noted to be elevated here in the emergency room. Monitor your blood pressure and follow-up with your primary care physician to review those readings. Return to the emergency department for any worsening symptoms. Hypertension is another name for high blood pressure. High blood pressure forces your heart to work harder to pump blood. This can cause problems over time. There are two numbers in a blood pressure reading. There is a top number (systolic) over a bottom number (diastolic). It is best to have a blood pressure that is below 120/80. What are the causes? The cause of this condition is not known. Some other conditions can lead to high blood pressure. What increases the risk? Some lifestyle factors can make you more likely to develop high blood pressure: ? Smoking. ? Not getting enough exercise or physical activity. ? Being overweight. ? Having too much fat, sugar, calories, or salt (sodium) in your diet. ? Drinking too much alcohol. Other risk factors include: ? Having any of these conditions: ? Heart disease. ? Diabetes. ? High cholesterol. ? Kidney disease. ? Obstructive sleep apnea. ? Having a family history of high blood pressure and high cholesterol. ? Age. The risk increases with age. ? Stress. What are the signs or symptoms? High blood pressure may not cause symptoms. Very high blood pressure (hypertensive crisis) may cause: ? Headache. ? Fast or uneven heartbeats (palpitations). ? Shortness of breath. ? Nosebleed. ? Vomiting or feeling like you may vomit (nauseous). ? Changes in how you see. ? Very bad chest pain. ? Feeling dizzy. ? Seizures. How is this treated? ? This condition is treated by making healthy lifestyle changes, such as: ? Eating healthy foods. ? Exercising more. ? Drinking less alcohol. ? Your doctor may prescribe medicine if lifestyle changes do not help enough and if: ? Your top number is above 130. ? Your bottom number is above 80. ? Your personal target blood pressure may vary. Follow these instructions at home: Eating and drinking ? If told, follow the DASH eating plan. To follow this plan: ? Fill one half of your plate at each meal with fruits and vegetables. ? Fill one fourth of your plate at each meal with whole grains. Whole grains include whole-wheat pasta, brown rice, and whole-grain bread. ? Eat or drink low-fat dairy products, such as skim milk or low-fat yogurt. ? Fill one fourth of your plate at each meal with low-fat (lean) proteins. Low-fat proteins include fish, chicken without skin, eggs, beans, and tofu. ? Avoid fatty meat, cured and processed meat, or chicken with skin. ? Avoid pre-made or processed food. ? Limit the amount of salt in your diet to less than 1,500 mg each day. ? Do not drink alcohol if: ? Your doctor tells you not to drink. ? You are , may be , or are planning to become . ? If you drink alcohol: ? Limit how much you have to: ? 0?1 drink a day for women. ? 0?2 drinks a day for men. ? Know how much alcohol is in your drink. In the [place] one drink equals one 12 oz bottle of beer (355 mL), one 5 oz glass of wine (148 mL), or one 1? oz glass of hard liquor (44 mL). Lifestyle ? Work with your doctor to stay at a healthy weight or to lose weight. Ask your doctor what the best weight is for you. ? Get at least 30 minutes of exercise that causes your heart to beat faster (aerobic exercise) most days of the week. This may include walking, swimming, or biking. ? Get at least 30 minutes of exercise that strengthens your muscles (resistance exercise) at least 3 days a week. This may include lifting weights or doing Pilates. ? Do not smoke or use any products that contain nicotine or tobacco. If you need help quitting, ask your doctor. ? Check your blood pressure at home as told by your doctor. ? Keep all follow-up visits. Medicines ? Take [id number]-[id number] and prescription medicines only as told by your doctor. Follow directions carefully. ? Do not skip doses of blood pressure medicine. The medicine does not work as well if you skip doses. Skipping doses also puts you at risk for problems. ? Ask your doctor about side effects or reactions to medicines that you should watch for. Contact a doctor if: ? You think you are having a reaction to the medicine you are taking. ? You have headaches that keep coming back. ? You feel dizzy. ? You have swelling in your ankles. ? You have trouble with your vision. Get help right away if: ? You get a very bad headache. ? You start to feel mixed up (confused). ? You feel weak or numb. ? You feel faint. ? You have very bad pain in your: ? Chest. ? Belly (abdomen). ? You vomit more than once. ? You have trouble breathing. These symptoms may be an em (more content not included)... [facility] Clinical Note 03-10-2022 Note Date & Type Note Facility 03-10-2022 Note PROCEDURE: XR ESOPHA HAIM, XR CINERADIOGRAPHY COMPARISON: None. HISTORY: Gastroesophageal reflux disease without esophagitis TECHNIQUE: An air contrast upper gastrointestinal series was performed in the usual manner. Standard level fluoroscopic mode of operation utilized. 1.8 minutes; limited images FINDINGS: ESOPHAGUS:Mild-moderate tertiary waves, small hiatal hernia, and moderate gastroesophageal reflux. No stricture or appreciable mucosal irregularity. STOMACH: No obstruction, mass, or ulceration. Normal motility. DUODENUM:Large diverticulum arising from third portion of duodenum. OTHER: Negative. IMPRESSION: 1. Tertiary waves, small hiatal hernia, and moderate gastroesophageal reflux likely accounting for patient's symptoms. Electronically authenticated by: MICHAEL WHITE Date: 2022-03-10 14:02 [facility] Clinical Note 03-10-2022 Note Date & Type Note Facility 03-10-2022 Note PROCEDURE: XR ESOPHA HAIM, XR CINERADIOGRAPHY COMPARISON: None. HISTORY: Gastroesophageal reflux disease without esophagitis TECHNIQUE: An air contrast upper gastrointestinal series was performed in the usual manner. Standard level fluoroscopic mode of operation utilized. 1.8 minutes; limited images FINDINGS: ESOPHAGUS:Mild-moderate tertiary waves, small hiatal hernia, and moderate gastroesophageal reflux. No stricture or appreciable mucosal irregularity. STOMACH: No obstruction, mass, or ulceration. Normal motility. DUODENUM:Large diverticulum arising from third portion of duodenum. OTHER: Negative. IMPRESSION: 1. Tertiary waves, small hiatal hernia, and moderate gastroesophageal reflux likely accounting for patient's symptoms. Electronically authenticated by: MICHAEL WHITE Date: 2022-03-10 14:02 [facility] Summary Purpose Family History No Family History Records FoundNo Family History Records FoundNo Family History Records Found Advance Directives No Advanced Directives Records FoundNo Advanced Directives Records FoundNo Advanced Directives Records Found Additional Source Comments INFORMATION SOURCE (unrecogn ized section and content) DATE CREATED AUTHOR 03/13/[address] [facility] DATE CREATED AUTHOR AUTHOR'S ORGANIZ ATION 06/10/2023 [facility] DATE CREATED AUTHOR AUTHOR'S ORGANIZ ATION 08/26/2023 [facility] FOR RECORDS PERTAINING TO PATIENTS WHO ARE OR HAVE BEEN ENROLLED IN A CHEMICAL DEPENDENCY/SUBSTANCEABUSE PROGRAM, SOME INFORMATION MAY BE OMITTED. This clinical summary was aggregated from multiple sources. Caution should be exercised in using it in the provision of clinical care. This summary normalizes information from multiple sources, and as a consequence, information in this document may materially change the coding, format and clinical context of patient data. In addition, data may be omitted in some cases. CLINICAL DECISIONS SHOULD BE BASED ON THE PRIMARY CLINICAL RECORDS. [employer] provides no warranty or guarantee of the accuracy or completeness of information in this document.
[2023-09-21 09:39] LABS: Basophils Absolute Auto 0.1 10^3/uL (0.0-0.1); Basophils Percent Auto 1.3 % (0.2-2.0); Eosinophils Absolute Auto 0.3 10^3/uL (0.0-0.7); Eosinophils Percent Auto 3.9 % (0.9-7.0); Hemoglobin 13.8 g/dL (12.0-16.0); Immature Granulocytes Abs Auto 0.01 10^3/uL (0.00-0.03); Immature Granulocytes Pct Auto 0.1 % (0.0-0.5); Lymphocytes Absolute Auto 1.8 10^3/uL (1.2-3.8); Lymphocytes Percent Auto 26.3 % (20.5-60.0); Mean Corpuscular HGB Conc 32.1 g/dL (29.9-35.2); Mean Corpuscular Hemoglobin 29.3 pg (26.7-34.0); Mean Corpuscular Volume 91.3 fL (81.0-99.0); Mean Platelet Volume 10.3 fL (9.5-13.5); Monocytes Absolute Auto 0.5 10^3/uL (0.3-0.8); Monocytes Percent Auto 6.7 % (1.7-12.0); Neutrophils Absolute Auto 4.3 10^3/uL (1.4-6.5); Neutrophils Percent Auto 61.7 % (43.0-75.0); Platelet Count 299 10^3/uL (150-450); Red Blood Count 4.71 10^6/uL (4.20-5.40); Red Cell Distribution Width 12.4 % (11.0-15.0)
[2023-09-21 10:02] LABS: Estimated Average Glucose 114 mg/dL; Glycohemoglobin A1C 5.6 % (4.5-6.2)
[2023-09-21 10:10] LABS: Alanine Aminotransferase 15 U/L (14-59); Albumin Globulin Ratio 1.2; Albumin Level 3.6 g/dL (3.4-5.0); Alkaline Phosphatase 72 U/L (46-116); Anion Gap 11.6; Aspartate Amino Transferase 16 U/L (15-37); BUN Creatinine Ratio 14.3; Bilirubin Direct 0.2 mg/dL (0.0-0.2); Calcium 8.5 mg/dL (8.5-10.1); Carbon Dioxide 27.2 mmol/L (21.0-32.0); Chloride 108 mmol/L (98-107); Chol HDL Ratio 3.2; Cholesterol 202 mg/dL (<=200); Estimated GFR (African America >60 (>=60); Estimated GFR (Non-African Ame >60 (>=60); Globulin 3.1 g/dL; Glucose 112 mg/dL (74-106); HDL Cholesterol 64 mg/dL (40-60); Potassium 3.8 mmol/L (3.5-5.1); Sodium 143 mmol/L (136-145); Total Protein 6.7 g/dL (6.4-8.2); Triglycerides 202 mg/dL (<=150); VLDL CHOLESTEROL 40.4 mg/dL
== END 2023-09-21 09:22 | disposition home or self-care (01) ==
LOC: LAB 09:22
PROVIDERS: PCP Family Medicine; Visit Provider Family Medicine
DX: R73.03 Prediabetes (principal); Z79.899 Other long term (current) drug therapy; E78.5 Hyperlipidemia, unspecified
CPT/HCPCS: 36415; 80048; 80061; 80076; 83036; 85025

== ENCOUNTER 2024-07-07 14:33 | Emergency (ER) | payer MEDICARE, SELFPAY ==
[2024-07-07 14:40] VITALS: BP 200/90; PULSE 70; TEMP 36.8; O2SAT 96; BMI 22.8
--- NOTE | 2024-07-07 15:18 | ED.FEMALEGU1 ---
Documented by User: HANS Abernathy 07/07/24 16:32 HPI - Female Genitourinary General Chief complaint: Urogenital-Female Stated complaint: chemical exposure Time Seen by Provider: 07/07/24 14:36 Source: patient Mode of arrival: walk-in Limitations: no limitations History of Present Illness HPI Narrative: Patient is an 89-year-old female who presents to the emergency department for vaginal pain for the last week. Patient states she has ongoing issues with irritation to the vaginal area from a rash . She states for the last week she has noticed discomfort with urination in the vaginal area that she believes is increasing irritation from her rash. She states because she has her gallbladder out she urinates frequently. She has had no fevers, chills, nausea, vomiting, abdominal pain, flank or back pain. She is concerned she may have a urinary tract infection that is irritating her rash. She tried to call her PCP but could not get into the office and she states that her 's urologist was willing to see her in 6 weeks. Related Data Home Medications ?Medication ?Instructions ?Recorded ?Confirmed alendronate 70 mg tablet 70 mg PO .weekly 02/22/23 02/22/23 cyclosporine 0.05 % eye drops in a 1 drp ophthalmic (eye) DAILY 02/22/23 02/22/23 dropperette latanoprost 0.005 % eye drops 1 drp ophthalmic (eye) .qhs 02/22/23 02/22/23 levofloxacin 750 mg tablet 750 mg PO Q24H 02/22/23 02/22/23 pantoprazole 40 mg tablet,delayed 40 mg PO Q12H 02/22/23 02/22/23 release prednisone 10 mg tablet 10 mg PO .COMPLEX 02/22/23 02/22/23 simvastatin 40 mg tablet 40 mg PO .qhs 02/22/23 02/22/23 Previous Rx's ?Medication ?Instructions ?Recorded cephalexin 500 mg capsule 500 mg PO Q8H 7 days #21 caps 07/07/24 nystatin-triamcinolone 100,000 1 applic topical BID #15 grams 07/07/24 unit/g-0.1 % topical cream Allergies Allergy/AdvReac Type Severity Reaction Status Date / Time No Known Drug Allergies Allergy Verified 02/22/23 13:26 Review of Systems ROS Constitutional Denies: fever or chills Ears, nose, mouth, and throat Denies: throat pain or nasal congestion Cardiovascular Denies: chest pain Respiratory Denies: shortness of breath Gastrointestinal Denies: abdominal pain, nausea or vomiting Genitourinary Reports: painful urination and urinary frequency; Denies: blood in urine Integumentary/Breast Reports: rash Hematologic/Lymphatic Denies: easy bruising or easy bleeding PFS PFS Social History Smoking status: Never smoker Little interest or pleasure in doing things: not at all Feeling down, depressed, or hopeless: not at all Exam Narrative Exam Narrative: Gen.: Awake, alert, in no distress Head: Normocephalic, atraumatic ENT: Moist mucous membranes Respiratory: No respiratory distress : Faint irritation noted of the left inguinal crease, mild erythematous irritation of the right medial labia. No drainage, bleeding, open wounds or cellulitis noted. No vesicles or crusting. Extremities: Moves extremities equally Psych: Normal mood and affect Neuro: No focal neuro deficit Skin: Warm, dry, intact Constitutional Vital Signs, click to edit/add: Last Vital Signs Temp 98.3 F 07/07/24 14:40 Pulse 70 07/07/24 14:40 Resp 18 07/07/24 14:40 BP 180/80 H 07/07/24 16:39 Pulse Ox 96 07/07/24 14:40 O2 Del Method Room Air 07/07/24 14:40 Course Vital Signs Vital signs: Vital Signs Temperature 98.3 F 07/07/24 14:40 Pulse Rate 70 07/07/24 14:40 Respiratory Rate 18 07/07/24 14:40 Blood Pressure 200/90 H 07/07/24 14:40 Pulse Oximetry 96 07/07/24 14:40 Oxygen Delivery Method Room Air 07/07/24 14:40 Temperature 98.3 F 07/07/24 14:40 Pulse Rate 70 07/07/24 14:40 Respiratory Rate 18 07/07/24 14:40 Blood Pressure 180/80 H 07/07/24 16:39 Pulse Oximetry 96 07/07/24 14:40 Oxygen Delivery Method Room Air 07/07/24 14:40 MDM - Female Genitourinary MDM Narrative Medical decision making narrative: Urine specimen shows mild urinary tract infection. Blood pressure rechecked prior to discharge. Patient will be placed on antibiotics and topical ointment for the vaginal irritation. Follow-up with PCP and return to the ER if symptoms change or worsen Medical Records Attestation: I reviewed the patient's medical records. Lab Data Attestation: I reviewed the patient's lab results. Labs: Lab Results 07/07/24 Range/Units 13:50 Urine Color Yellow (YELLOW) Urine Clarity Clear (CLEAR) Urine pH 6.0 (5.0-9.0) Ur Specific [place] >=1.030 A (1.005-1.025) Urine Protein Negative (NEG/TRACE) mg/dL Urine Glucose (UA) Negative (NEGATIVE) mg/dL Urine Ketones 40 A (NEGATIVE) mg/dL Urine Occult Blood Negative (NEGATIVE) Urine Nitrite Negative (NEGATIVE) Urine Bilirubin Negative (NEGATIVE) Urine Urobilinogen 0.2 (0.2-1.0) EU/dL Ur Leukocyte Esterase Small A (NEGATIVE) Urine RBC 0-2 (0-2) #/HPF Urine WBC 2-5 A (NONE SEEN) #/HPF Ur Squamous Epith Cells Few A (NONE/RARE) #/LPF Ur Transition Epith Cell Rare A (NONE SEEN) #/LPF Urine Crystals None seen (None Seen) #/HPF Urine Bacteria Small A (NONE SEEN) #/HPF Urine Casts None seen (NONE SEEN) #/LPF Urine Mucus Moderate A (NONE SEEN) Ur Culture Indicated? Yes-[facility] [place] Discharge Plan Discharge Chief Complaint: Urogenital-Female Clinical Impression: Urinary tract infection, Vaginitis Patient Disposition: Home, Self-Care Time of Disposition Decision: 16:28 Condition: Good Prescriptions / Home Meds: New cephalexin 500 mg capsule 500 mg PO Q8H 7 Days Qty: 21 0RF nystatin-triamcinolone 100,000-0.1 unit/g-% cream 1 applic topical BID Qty: 15 0RF No Action alendronate 70 mg tablet 70 mg PO .weekly cyclosporine 0.05 % dropperette 1 drp OPHTHALMIC (EYE) DAILY latanoprost 0.005 % drops 1 drp OPHTHALMIC (EYE) .qhs pantoprazole 40 mg tablet,delayed release (DR/EC) 40 mg PO Q12H prednisone 10 mg tablet 10 mg PO .COMPLEX Rx Instructions: 10 mg orally TAKE 6 TABLETS BY MOUTH ONCE DAILY FOR 3 DAYS THEN 4 ONCE DAILY FOR 3 DAYS THEN 2 ONCE DAILY FOR 3 DAYS THEN 1 ONCE DAILY FOR 3 DAYS; simvastatin 40 mg tablet 40 mg PO .qhs levofloxacin 750 mg tablet 750 mg PO Q24H Patient Comments: started on 02/17 Print Language: Romanian Instructions: Urinary Tract Infection in Women (ED) Referrals: Bryan Ying DO [Physician, COMMUNICATIONS MANAGER] - 1 week Jerald Faye MD [Primary Care Provider, Family Practice] - 1 week Discharge Date/Time: 07/07/24 16:40 Documented by User: Keith Orozco MD 07/07/24 19:30 HPI - Female Genitourinary General Chief complaint: Urogenital-Female Stated complaint: chemical exposure Time Seen by Provider: 07/07/24 14:36 Related Data Home Medications ?Medication ?Instructions ?Recorded ?Confirmed alendronate 70 mg tablet 70 mg PO .weekly 02/22/23 02/22/23 cyclosporine 0.05 % eye drops in a 1 drp ophthalmic (eye) DAILY 02/22/23 02/22/23 dropperette latanoprost 0.005 % eye drops 1 drp ophthalmic (eye) .qhs 02/22/23 02/22/23 levofloxacin 750 mg tablet 750 mg PO Q24H 02/22/23 02/22/23 pantoprazole 40 mg tablet,delayed 40 mg PO Q12H 02/22/23 02/22/23 release prednisone 10 mg tablet 10 mg PO .COMPLEX 02/22/23 02/22/23 simvastatin 40 mg tablet 40 mg PO .qhs 02/22/23 02/22/23 Previous Rx's ?Medication ?Instructions ?Recorded cephalexin 500 mg capsule 500 mg PO Q8H 7 days #21 caps 07/07/24 nystatin-triamcinolone 100,000 1 applic topical BID #15 grams 07/07/24 unit/g-0.1 % topical cream Allergies Allergy/AdvReac Type Severity Reaction Status Date / Time No Known Drug Allergies Allergy Verified 02/22/23 13:26 PFSH PFSH Social History Smoking status: Never smoker Little interest or pleasure in doing things: not at all Feeling down, depressed, or hopeless: not at all Exam Constitutional Vital Signs, click to edit/add: Last Vital Signs Temp 98.3 F 07/07/24 14:40 Pulse 70 07/07/24 14:40 Resp 18 07/07/24 14:40 BP 180/80 H 07/07/24 16:39 Pulse Ox 96 07/07/24 14:40 O2 Del Method Room Air 07/07/24 14:40 Course Vital Signs Vital signs: Vital Signs Temperature 98.3 F 07/07/24 14:40 Pulse Rate 70 07/07/24 14:40 Respiratory Rate 18 07/07/24 14:40 Blood Pressure 200/90 H 07/07/24 14:40 Pulse Oximetry 96 07/07/24 14:40 Oxygen Delivery Method Room Air 07/07/24 14:40 Temperature 98.3 F 07/07/24 14:40 Pulse Rate 70 07/07/24 14:40 Respiratory Rate 18 07/07/24 14:40 Blood Pressure 180/80 H 07/07/24 16:39 Pulse Oximetry 96 07/07/24 14:40 Oxygen Delivery Method Room Air 07/07/24 14:40 MDM - Female Genitourinary MDM Narrative Medical decision making narrative: Urine specimen shows mild urinary tract infection. Blood pressure rechecked prior to discharge. Patient will be placed on antibiotics and topical ointment for the vaginal irritation. Follow-up with PCP and return to the ER if symptoms change or worsen IDr Orozco, have reviewed the above progress note and course of action in the ER; agree with the above. I have personally gone over history and physical, and discussed disposition and treatment plan with the PA. Lab Data Labs: Lab Results 07/07/24 Range/Units 13:50 Urine Color Yellow (YELLOW) Urine Clarity Clear (CLEAR) Urine pH 6.0 (5.0-9.0) Ur Specific [place] >=1.030 A (1.005-1.025) Urine Protein Negative (NEG/TRACE) mg/dL Urine Glucose (UA) Negative (NEGATIVE) mg/dL Urine Ketones 40 A (NEGATIVE) mg/dL Urine Occult Blood Negative (NEGATIVE) Urine Nitrite Negative (NEGATIVE) Urine Bilirubin Negative (NEGATIVE) Urine Urobilinogen 0.2 (0.2-1.0) EU/dL Ur Leukocyte Esterase Small A (NEGATIVE) Urine RBC 0-2 (0-2) #/HPF Urine WBC 2-5 A (NONE SEEN) #/HPF Ur Squamous Epith Cells Few A (NONE/RARE) #/LPF Ur Transition Epith Cell Rare A (NONE SEEN) #/LPF Urine Crystals None seen (None Seen) #/HPF Urine Bacteria Small A (NONE SEEN) #/HPF Urine Casts None seen (NONE SEEN) #/LPF Urine Mucus Moderate A (NONE SEEN) Ur Culture Indicated? Yes-[facility] [place] Discharge Plan Discharge Chief Complaint: Urogenital-Female Clinical Impression: Urinary tract infection, Vaginitis Patient Disposition: Home, Self-Care Time of Disposition Decision: 16:28 Condition: Good Prescriptions / Home Meds: New cephalexin 500 mg capsule 500 mg PO Q8H 7 Days Qty: 21 0RF nystatin-triamcinolone 100,000-0.1 unit/g-% cream 1 applic topical BID Qty: 15 0RF No Action alendronate 70 mg tablet 70 mg PO .weekly cyclosporine 0.05 % dropperette 1 drp OPHTHALMIC (EYE) DAILY latanoprost 0.005 % drops 1 drp OPHTHALMIC (EYE) .qhs pantoprazole 40 mg tablet,delayed release (DR/EC) 40 mg PO Q12H prednisone 10 mg tablet 10 mg PO .COMPLEX Rx Instructions: 10 mg orally TAKE 6 TABLETS BY MOUTH ONCE DAILY FOR 3 DAYS THEN 4 ONCE DAILY FOR 3 DAYS THEN 2 ONCE DAILY FOR 3 DAYS THEN 1 ONCE DAILY FOR 3 DAYS; simvastatin 40 mg tablet 40 mg PO .qhs levofloxacin 750 mg tablet 750 mg PO Q24H Patient Comments: started on 02/17 Print Language: Romanian Instructions: Urinary Tract Infection in Women (ED) Referrals: Bryan Ying DO [Physician, COMMUNICATIONS MANAGER] - 1 week Jerald Faye MD [Primary Care Provider, [facility]] - 1 week Discharge Date/Time: 07/07/24 16:40
[2024-07-07 15:56] LABS: Bilirubin Urine NEGATIVE (NEGATIVE); Blood Urine NEGATIVE (NEGATIVE); Clarity Urine CLEAR (CLEAR); Color Urine YELLOW (YELLOW); Glucose Urine UA NEGATIVE (NEGATIVE); Ketones Urine 40 mg/dL (NEGATIVE); Leukocyte Esterase Urine SMALL (NEGATIVE); Nitrite Urine NEGATIVE (NEGATIVE); Protein Urine NEGATIVE (NEG/TRACE); Specific Gravity Urine >=1.030 (1.005-1.025); Urobilinogen Urine 0.2 EU/dL (0.2-1.0)
[2024-07-07 16:09] LABS: Bacteria Urine SMALL #/HPF (NONE SEEN); Cast Seen? NONE SEEN #/LPF (NONE SEEN); Crystals Seen? None Seen #/HPF (None Seen); Mucus Urine MODERATE (NONE SEEN); RBC Urine 0-2 #/HPF (0-2); Squamous Epithelial Cell Urine FEW #/LPF (NONE/RARE); Transitional Epi Cells Urine RARE #/LPF (NONE SEEN); Urine Culture Indicated YES-FRMC
[2024-07-07 16:39] VITALS: BP 180/80
== END 2024-07-07 16:40 | disposition home or self-care (01) ==
PROVIDERS: Physician Assistant; Emergency Provider Emergency Medicine; PCP Family Medicine
DX: N39.0 Urinary tract infection, site not specified (principal); N76.0 Acute vaginitis
CPT/HCPCS: 81001; 87086; 99283

== ENCOUNTER 2025-01-18 09:52 | Outpatient (OUT) | payer MEDICARE, SELFPAY ==
--- OUTSIDE RECORDS SUMMARY | 2025-01-18 04:37 | XMS_ITS | Continuity of Care Document ---
Author Organization [facility] Address [address] [place] [address] Phone Care Team Providers Care Foster Winder Name Role Phone Bonnie Sears DO Attending Provider Jerald Faye MD Primary Care Provider [phone] Care Teams Patient Care Team Team Status: Active Member Role/Relationship Status Dates Jerald Faye MD Primary Care Provider Active Patient Care Team Team Status: Inactive Member Role/Relationship Status Dates Bonnie Sears DO Attending Provider Active Star t: January 18, 2025 End: January 18, 2025Mar Redd Faye Care ProviderActiveStart: January 18, 2025 End: January 18, 2025 Chief Complaint and Reason for Visit Chief Complaint Admit Date flu like symptoms January 18, 2025 8:55am Allergies, Adverse Reactions, Alerts Allergen Type Severity Reaction Last Updated Verified Status levofloxacin Adverse Reaction Moderate Muscle Pain Novem 2024 9:02am Yes Active Social History Smoking Status Status Start Date End Date Date of Observa tion Never smoked tobacco (finding) June 17, 2024 11:44am Observation Status Observation Response Date of Response Legal Sex [facility] (finding) [facility] Family History Relationship Condition Age at Onset Recorded Date/T jessica father Heart disease Unknown sisterHeart diseaseUnknownmotherCerebrovascular accident (CVA)Unknown Problems Active Problems Problem Diagnosis/Recorded Date Onset Date Stat us Cough with hemoptysis January 18, 2025 9:34am Unkno wn Active Acute bacterial sinusitis January 18, 2025 9:34am U nknown Active Acute sinusitis June 17, 2024 11:18am Unknown Active Puncture wound of skin from metal nail October 18 3:46pm Unknown Active Inactive/Resolved Problems Problem Diagnosis/Recorded Date Onset Date Stat us High cholesterol May 08, 2023 12:57pm Unknown Resolved Medications Medication Status Dose Units Route Directions Qty Days Refills S tart Date Stop Date End Date Reason(s) Instructions Adherence Alendronate 70 mg tablet Active 70 MG PO every w sitka 12 0January 15, 2025 12:03pmUnknownSimvastatin 40 mg jvqkcuZhgayk39DJQHKdqfm May 08, 2023 12:00amUnknownPantoprazole 40 mg tablet,delayed release (DR/EC) ActiveMGPOMar 2023 12:00amUnknownDorzolamide-Timolol 22.3-6.8 mg/mL drops DiscontinuedOPHTHALMICWvumed[facility] 2023 12:00amApril 2024 10:57amLatanoprost 0.005 % dropsActiveDROPSOPHTHALMICDailyWvumedicine [facility] 2023 12:00amUnknownAlendronate 70 mg ksnyvfAxqnpenspwgi22NIALxofxs weekWvumedicine [facility] 2023 12:00amNovember 2024 12:04pmAzithromycin 250 mg kgawtvKslmyfromhur0PV.CNBRLCN94Ykpcj 2023 12:00amA2023 2:09pmFor 250 mg dose pack: take 500 mg today (day 1), then 250 mg for 4 days (days 2-5) POPyrilamine-Dextromethorphan ([place] Dm) 7.5- 7.5 mg/5 mL jghyjkYyfbslquytff36IWRMPdqvl 8 johyt95251Xlmpb 2023 12:00am October 19, 2023 2:09pmCyclosporine 0.05 % lnhswvnqjvuPkhxum6MEPDUBHG-TQBEAfcyw 12 hoursJanuary 18, 2025 12:00amComplies with drug therapy Carboxymethylcellulose-Glycern (Refresh Optive) 0.5-0.9 % ndwgwThmkzp4RHKMJ EYE-BOTHTwice dailyJanuary 18, 2025 12:00amComplies with drug therapy Cyclosporine 0.05 % dqzqkhjpfqePhjxfw6XZRCTGYW-UNSLDpeej 12 wfftr687EbrkgbosJanuary 18, 2025 9:13amComplies with drug therapyCarboxymethylcellulose-Glycern (Refresh Optive) 0.5-0.9 % tldgiTnanwx0MRIIOWXF-DLZTVbkh times eligl302AtlbeoulJanuary 18, 2025 9:14amComplies with drug therapyFluticasone Propionate (Allergy Relief (Fluticasone)) 50 mcg/actuation spray,smjapyupknAyifgnflbaze1VFVBR INTRANASALDailyApril 2024 11:00pmJanuary 18, 2025 9:03amadminister into each nostrilCalcium Carbonate 600 mg calcium (1,500 mg) caixwtWnxsor729GOPFGjimg June 16, 2024 11:00pmUnknownCholecalciferol (Vitamin D3) 25 mcg (1,000 unit) qmjdiblVasepo62VJADFQsczvUcuer 18th, 2025 11:00pmUnknownPyridoxine (Vitamin B6) 100 mg xtxavbIlsbch255XRYSCbkts a WeekApr2024 11:00pmUnknownBiotin 5 mg xamfeyjCnahda9XNCVGgyiqGgeyw 2024 11:00pmUnknownCarboxymethylcellulose- Glycern (Refresh Optive) 0.5-0.9 % igmxiVvuhqrtfjnse3NIEFQNME-WKZSHnrw times dailyApr2024 11:2024 9:02amMskagit valley hospital [facility] (Ocusoft Eyelid Cleansing Pads) padActive0.RouteApr2024 11:00pm As directedOlopatadine (Pataday Once Daily Relief) 0.2 % vzibeMwnqiw5JYJSR EYE-BOTHDailyApril 2024 11:00pmUnknownCyclosporine 0.05 % dropperette Ryymgnjfhdxk4XJDFYYPB-TMOBSwurf 12 hoursApr2024 11:2024 9:02amLoratadine (Claritin) 10 mg iqpidqDkdmwn57MDCIHsfnfJyuan 2024 11:00pmUnknownAmoxicillin 875 mg zrwqxhHfvmjcccdokw126BPDGZozxm 12 lehpv60555 June 16, 2024 11:00pmJanuary 18, 2025 9:02am Immunizations Immunization Event Date Not Given Reason Dose Number Maintenance 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 Lot Number Reason(s) Given Vaccine Information Statement (VIS) Detail Administration Location Tetanus, Diphtheria adult, 5 Lf pres free abs [facility] 2023 [id number] Vital Signs Vital Reading Result Reference Range Collection Date/Time Height 64 [in_i] January 18, 2025 9:13crVcjrkc22.77 kgJanuary 18, 2025 9:01amHeart Rate72 /vdn73-288ZjssqcyqJanuary 18, 2025 9:01amRespiratory rate16 /xta60-07MrhhvmnfJanuary 18, 2025 9:01amOxygen saturation by Pulse %95-100January 18, 2025 9:01amBP Pzbbugsb878 mm[Hg]100-140January 18, 2025 9:01amBP Zewimgjbe03 mm[Hg]60-100January 18, 2025 9:01amBMI (Body Mass Index)24.9 kg/y1WxndpswtJanuary 18, 2025 9:01am Advance Directives Advance Directive Response Recorded Date/ Time Advance Directives No May 07 12:39pm Insurance Providers Guarantor Marley Miramontes Naomy Address [address] [place] [id number] Info.Home Phone: Payer Group Member ID Coverage Type Subscriber Relationship to Subscriber Effective Date Expiration Date [employer] [facility] [id number] W [place] Id: [id number] [address] [place] [id number] Home Phone: Email: [email or web address] Encounters Encounter Location(s) Arrival/Admit Date Discharge/Departure Date Discharge/Departure Disposition Provider(s) Departed Physician/ Provider Office Visit -[facility] Family Medicine [place] January 18, 2025 8:55am January 18, 2025 9:36am Discharged to home care or self care (routine discharge) Bonnie Sears DO Plan of Treatment Future Tests Future scheduled test information is unavailable Pending Tests Test Name Ordered Date Scheduled Date Comprehensive Metabolic Panel January 18 9:33am XR chest 2V*January 18, 2025 9:33am Future Visits Future appointment information is unavailable Future Procedures Procedure Name Ordered Date Scheduled Date Complete Blood Count Auto Diff January 18 9:33am Future Medications Future medication information is unavailable Patient Instructions Patient instructions are unavailable
--- NOTE | 2025-01-18 10:12 | XR_ITS ---
The [address] [address] Patient Name: ADAM GUZMAN MRN: [id number] date: 1935 Sex: F Assigned Patient Location: LAB Current Patient Location: LAB Accession/Order Number: [id number] Exam Date: 01/18/2025 10:15 Report Date: 01/18/2025 10:40 At the request of: KATIE DEMPSEY DO Procedure: XR chest 2V PA AND LATERAL CHEST: CLINICAL HISTORY: Cough With Hemoptysis. Chronic sinus congestion. COMPARISON: 08/18/2020 There is no focal parenchymal consolidation, effusion or pneumothorax. The cardiac, hilar and mediastinal silhouettes are within normal limits. There is no vascular congestion. The visualized bony thorax is intact. There is subtle scoliotic curvature and tiny endplate spurs. XR/XR chest 2V IMPRESSION: NO ACUTE CARDIOPULMONARY ABNORMALITY. Impression dictated by: Umm Wilcox M.D. 01/18/2025 10:40 AM Dictation Location: [place] [address] Electronically authenticated by: [id number] Date: 01/18/2025 10:40
--- OUTSIDE RECORDS SUMMARY | 2025-01-18 10:12 | XMS_ITS | CCD ---
Author Organization [facility] Care Team Providers Care Director Medical Writing Name Role Phone MICHAEL, DR JAMES Tello Consulting Unavailabl e GRILLIS, DR JAMES Tello Admitting Unavailabl e FAWWAD, SANCHEZ H Primary Care Unavailable GRILLILeland, DR JAMES Tello Attending Unavailabl e ZIEBER, DR MICHAEL Castillo Consulting Unavailable NADERER, DR JERALD Rodriguez Attending Unavailable NADERER, DR JERALD Rodriguez Consulting Unavailable NADERER, DR JERALD Rodriguez Primary Care Unavailable NADERER, DR JERALD Rodriguez Admitting Unavailable ZIEBER, DR MICHAEL Castillo Consulting Unavailable FAWWAD, SANCHEZ H Primary Care Unavailable FAWWAD, SANCHEZ H Admitting Unavailable FAWWAD, SANCHEZ H Attending Unavailable FAWWAD, SANCHEZ H Consulting Unavailable FAWWAD, SANCHEZ H Primary Care Unavailable FAWWAD, SANCHEZ H Admitting Unavailable FAWWAD, SANCHEZ H Attending Unavailable NADERERJERALD Primary Care Unavailable StaltBean perez Admitting Unavailable StaBean gregory Attending Unavailable Jerald Hazel MD Primary Care Provider [phone] Jerald Hazel MD Unavailable Kathy Leon Attending Unavailable Kathy Leon Admitting Unavailable Kathy Leon PA-C Attending Provider Jerald Hazel MD Primary Care Provider [phone] NORAH AGUIRRE I Attending Unavailable JERALD HAZEL Referring Unavailable QIANEREJERALD Castillo Primary Care Unavailable JERALD HAZEL Attending Unavailable NADEREJERALD Castillo Attending Unavailable NADEREJERALD Castillo Attending Unavailable JERALD HAZEL Referring Unavailable JERALD HAZEL Primary Care Unavailable Allergies Allergy ClassificationReported Allergen(s)Allergy TypeDate of OnsetReaction(s) Facility (12 sources)levoFLOXacin; Translations: [levofloxacin]Drug Nxoisxr57-75-2349 [facility] Medications Current Medications MedicationDrug Class(es)DatesSig (Normalized)Sig (Original)alendronic acid 70 mg oral tablet (12 sources)BisphosphonateStart: 81-35-0179rojk 1 tablet by mouth every week Alendronate 70 mg tablet Active 70 MG PO every week May 08, 2023 1:00amStart: 57-39-6154hkek 1 tablet by mouth in the morningalendronate (Fosamax) 70 MG tablet Indications: Osteopenia of right femoral neck Take 1 tablet (70 mg) by mouth every 7 (seven) days Take in the morning with a full glass of water, on an empty stomach, and do not take anything else by mouth or lie down for the next 30 min. 12 tablet 3 08/25/2023 Activeamoxicillin 875 mg oral tablet (2 sources)Penicillin-class AntibacterialStart: 61-21-9008qzqf 1 tablet by mouth every twelve hoursAmoxicillin 875 mg tablet Active 875 MG PO Every 12 hours 20 10 June 17, 2024 12:00ambiotin 5 mg oral capsule (3 sources)Start: 14-54-5085bhwo 1 capsule by mouth once dailyBiotin 5 mg capsule Active 5 MG PO Daily June 17, 2024 12:00amtake 1 tablet by mouth in the morningbiotin 1 mg capsule Take 1 tablet by mouth in the morning. Active calcium carbonate 1500 mg oral tablet (10 sources)Start: 56-46-7277kbtd 1 tablet by mouth once dailyCalcium Carbonate 600 mg calcium (1,500 mg) tablet Active 600 MG PO Daily June 17, 2024 12:00am calcium carbonate 1250 mg / cholecalciferol 200 unt oral tablet (1 source)Vitamin Dtake 1 tablet by mouth once in the morningcalcium carbonate- vitamin D3 (OSCAL 500 + D) 500 mg(1,250mg) -200 units per tablet Take 1 tablet bymouth in the morning and 1 tablet in the evening. Take with meals. Active carboxymethylcellulose sodium 5 mg/ml / glycerin 9 mg/ml ophthalmic solution (2 sources)Non-Standardized Chemical AllergenStart: 06-17-2024 Carboxymethylcellulose-Glycern (Refresh Optive) 0.5-0.9 % drops Active 1 DROPS EYE-BOTH Four times daily June 17, 2024 12:00amcholecalciferol 0.025 mg oral capsule (10 sources)Vitamin DStart: 49-24-3218uptr 1 capsule by mouth once daily Cholecalciferol (Vitamin D3) 25 mcg (1,000 unit) capsule Active 25 MCG PO Daily June 17, 2024 12:00amtake 1 capsule by mouth in the morningcholecalciferol (Vitamin D-3) 25 MCG (1000 UT) capsule Take 1,000 Units by mouth in the morning. Activecyclobenzaprine hydrochloride 10 mg oral tablet (3 sources)Muscle Relaxant End: 32-84-1174lkyg 1 tablet by mouth three times daily as needed for muscle spasmscyclobenzaprine (Flexeril) 10 MG tablet Take 1 tablet by mouth 3 (three) times a day as needed for muscle spasms 02/10/2024 DiscontinuedCyclosporine 0.05 % dropperette (2 sources)Start: 06-74-6857ewwo 1 drop(s) into the eye(s) every twelve hours Cyclosporine 0.05 % dropperette Active 1 DROPS EYE-BOTH Every 12 hours June 17, 2024 12:00amdorzolamide / Timolol (9 sources)Carbonic Anhydrase Inhibitor, beta-Adrenergic BlockerStart: 97-78-1079Npcdszzsmlq-Timolol Active OPHTHALMIC May 08, 2023 1:00amtake 1 drop(s) into the eye(s) in the morningdorzolamide-timolol (Cosopt) 2-0.5 % ophthalmic solution 1 drop in the morning and 1 drop before bedtime. Active fluticasone propionate 0.05 mg/actuat metered dose nasal spray (3 sources)CorticosteroidStart: 40-62-7764mkel 1 spray(s) nasal route once daily Fluticasone Propionate (Allergy Relief (Fluticasone)) 50 mcg/actuation spray,suspension Active 2 SPRAY INTRANASAL Daily June 17, 2024 12:00am administer into each nostrilfluticasone propionate (FLONASE) 50 mcg/actuation nasal spray Administer 1 spray into each nostril as needed. Activelatanoprost 0.05 mg/ml ophthalmic solution (11 sources)Prostaglandin AnalogStart: 54-86-4760dbzw 1 drop(s) into the eye(s) once dailyLatanoprost 0.005 % drops Active DROPS OPHTHALMIC Daily May 08, 2023 1:00amStart: 56-62-8720zvwn 1 drop(s) into the eye(s) once dailyLatanoprost Active DROPS OPHTHALMIC Daily May 08, 2023 1:00amStart: 01-08-2023 latanoprost (Xalatan) 0.005 % ophthalmic solution 01/08/2023 Activeloratadine 10 mg oral tablet (3 sources)Start: 35-54-3530jkjv 1 tablet by mouth once dailyLoratadine (Claritin) 10 mg tablet Active 10 MG PO Daily June 17, 2024 12:00amloratadine (CLARITIN REDITABS) 10 mg disintegrating tablet Dissolve 1 tablet (10 mg total) on tongue daily as needed for allergies. ActiveMiscellaneous Medical Supply (Ocusoft Eyelid Cleansing Pads) pad (2 sources)Start: 44-18-2767Knacztkgcpbxz Medical Supply (Ocusoft Eyelid Cleansing Pads) pad Active 0 .ROUTE June 17, 2024 12:00am As directed olopatadine 1 mg/ml ophthalmic solution (1 source)Histamine-1 Receptor Inhibitortake 1 drop(s) into the eye(s) in the morningolopatadine (PATANOL) 0.1 % ophthalmic solution 1 drop in the morning and 1 drop before bedtime. ActiveOlopatadine (Pataday Once Daily Relief) 0.2 % drops (2 sources)Start: 04-57-2514phru 1 drop(s) into the eye(s) once dailyOlopatadine (Pataday Once Daily Relief) 0.2 % drops Active 1 DROPS EYE-BOTH Daily June 17, 2024 12:00am24 hr oxybutynin chloride 10 mg extended release oral tablet (4 sources)Cholinergic Muscarinic AntagonistStart: 87-99-4257dnqr 1 tablet by mouth once dailyoxybutynin XL (Ditropan-XL) 10 MG 24 hr tablet Indications: Chronic interstitial cystitis without hematuria Take 1 tablet (10 mg) by mouth Daily Do not crush, chew, or split. 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 Do not crush, chew, or split.. 180 tablet 3 02/10/2024 Activesimvastatin 40 mg oral tablet (12 sources)HMG-CoA Reductase InhibitorStart: 63-81-8818wcgf 1 tablet by mouth at bedtimesimvastatin (Zocor) 40 MG tablet Indications: Dyslipidemia Take 1 tablet (40 mg) by mouth at bedtime 90 tablet 3 05/16/2024 Activevitamin b6 100 mg oral tablet (3 sources)Start: 54-06-0783lvxy 1 tablet by mouth two times weeklyPyridoxine (Vitamin B6) 100 mg tablet Active 100 MG PO Twice a Week June 17, 2024 12:00am Completed/Discontinued Medications MedicationDrug Class(es)DatesSig (Normalized)Sig (Original)azithromycin 250 mg oral tablet (3 sources)Macrolide AntimicrobialStart: 05-08-2023 End: 10-81-6050Bxwzwqamklyu 250 mg tablet Discontinued 0 PO .COMPLEX 6 May 08, 2023 1:00am October 19, 2023 3:09pm For 250 mg dose pack: take 500 mg today (day 1), then 250 mg for 4 days (days 2-5) POStart: 05-08-2023 End: 22-44-0417Tuhwcedrdkpc Discontinued 0 PO .COMPLEX May 08, 2023 1:00am October 19, 2023 3:09pm For 250 mg dose pack: take 500 mg today (day 1), then 250 mg for 4 days (days 2-5) POdextromethorphan hydrobromide 1.5 mg/ml / pyrilamine maleate 1.5 mg/ml oral solution (3 sources)Uncompetitive O-rufleq-C-aspartate Receptor Antagonist, Sigma-1 AgonistStart: 05-08-2023 End: 30-85-5173nfon 1 mL by mouth every eight hoursPyrilamine-Dextromethorphan (Manvel Dm) 7.5-7.5 mg/5 mL liquid Discontinued 10 ML PO Every 8 hours 150 5 May 08, 2023 1:00am October 19, 2023 3:09pmDorzolamide-Timolol 22.3-6.8 mg/mL drops (2 sources)Start: 05-08-2023 End: 29-47-0670Sttomalvbgj-Timolol 22.3-6.8 mg/mL drops Discontinued OPHTHALMIC May 08, 2023 1:00am May 11:57am Problems Active Problems Problem ClassificationProblemDateDocumented DateEpisodic/ChronicAbdominal hernia (1 source)Diaphragmatic hernia without obstruction or gangrene; Translations: [DIAPH HERNIA W/O OBST/GANGRENE]Onset: 14-45-2751CwlufhpgVqptdcgt mellitus without complication (15 sources)Prediabetes; Translations: [Prediabetes]Onset: 05-02-7689Ggbnomvs Disorders of lipid metabolism (15 sources)Hyperlipidemia, unspecified; Translations: [Hypercholesterolemia] Onset: 121892-30-5576DbwnkzgQ Codes: Cut/pierceb (2 sources)Metal nail puncture wound of skin; Translations: [Nail entering through skin, initial encounter]21-00-9858JycpzxvsXggokfrsdn disorders (14 sources)Gastro-esophageal reflux disease without esophagitis; Translations: [Snyder's esophagus]Onset: 55-39-9426WmdyaakRibsbfeynelya symptoms and ill- defined conditions (5 sources)Increased frequency of urination; Translations: [Frequency of micturition]Onset: 597543-00-8463GnhyxjukTqsyyjnd (8 sources)Glaucoma; Translations: [Unspecified glaucoma]Onset: 08-25-2023 62-65-4113UhvrfcpImsetqh and fatigue (3 sources)Fatigue; Translations: [Other fatigue]Onset: 748146-30-0880 EpisodicOsteoarthritis (18 sources)Chronic osteoarthritis; Translations: [Unspecified osteoarthritis, unspecified site]Onset: 107522-59-8145DcuxactHdcid aftercare (2 sources)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; Translations: [OTH [facility] CURRENT DRUG THERAPY]Onset: 19-56-8236OcchircbMycmx circulatory disease (4 sources)Elevated blood-pressure reading without diagnosis of hypertension; Translations: [Elevated blood-pressure reading, without diagnosis of hypertension]Onset: 145986-28-7683ZlmiqzgeTavri gastrointestinal disorders (1 source)Dysphagia, unspecified; Translations: [DYSPHAGIA UNSPECIFIED]Onset: 85-47-7595FyzucwsvTzyeb gastrointestinal disorders (1 source)Personal history of other diseases of the digestive system; Translations: [PERSONAL HX OTH DZ DIGESTIVE SYSTEM]Onset: 14-80-0497Calsnufx Other upper respiratory disease (8 sources)Allergic rhinitis due to pollen; Translations: [Allergic rhinitis due to pollen]Onset: 730810-01-6024SpbropkTttegbrzqojn (3 sources)LOW BACK PAIN, UNSPECIFIED; Translations: [LOW BACK PAIN, UNSPECIFIED]Onset: 77-64-9951Khqzsce tract infections (4 sources)Interstitial cystitis (chronic) without hematuria; Translations: [Chronic interstitial cystitis]Onset: 113240-02-4036KqqgbxjDwpwtmb tract infections (1 source)Urinary tract infectious diseaseOnset: 22-51-9168Hxlidutj Past or Other Problems Problem ClassificationProblemDateDocumented DateEpisodic/ChronicE Codes: Adverse effects of medical drugs (8 sources)Adverse reaction to drug; Translations: [Adverse effect of unspecified drugs, medicaments and biological substances, subsequent encounter] Onset: 03-09-2023 Resolved: 849536-98-0599CuvrbnxfG Codes: Fall (8 sources)Fall; Translations: [Unspecified fall, initial encounter]Onset: 06-11-2023 Resolved: 462110-84-4235IscnnaviBgdh disorders (8 sources)Mood disordersOnset: 08-25-2023 Resolved: Open wounds of head; neck; and trunk (8 sources)Facial laceration ; Translations: [Laceration without foreign body of other part of head, initial encounter]Onset: 06-11-2023 Resolved: 348216-17-0661DnfyqhwoLmzdm aftercare (10 sources)Long-term current use of drug therapy; Translations: [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]Onset: 043862-31-7653OgpehkmcNmsex bone disease and musculoskeletal deformities (8 sources)Osteopenia; Translations: [Other specified disorders of bone density and structure, right thigh]Onset: 924450-26-8911CumgkvxoElxjo gastrointestinal disorders (1 source)Other constipation; Translations: [OTHER CONSTIPATION]Onset: 59-12-5018KzqzbsuuKqevx gastrointestinal disorders (10 sources)Chronic constipation; Translations: [Other constipation]Onset: 939500-61-0063VkgzforvTagra upper respiratory infections (12 sources)Acute pansinusitis; Translations: [Acute pansinusitis, unspecified] Onset: 02-03-2023 Resolved: 802770-32-7726EtguptgtXvrwmb media and related conditions (8 sources)Disorder of right Eustachian tube; Translations: [Unspecified Eustachian tube disorder, right ear]Onset: 011350-10-4763Gqaqmykv Unclassified (1 source)LOW BACK PAIN, UNSPECIFIED; Translations: [LOW BACK PAIN, UNSPECIFIED] Onset: 09-19-2021 Results Test NameValueInterpretationReference RangeFacilityBASIC METABOLIC PANELon 01-99-5924Ipstx gap [Moles/Vol]10 mmol/LNormal5-15[facility] Comment on above:Performed By: #### BMP #### [facility] ([facility]) [address] [place] [address] VIRCalcium [Mass/Vol]9.1 mg/dLNormal8.5-10.5ProMedica Dominican HospitalComment on above:Performed By: #### BMP #### [facility] ([facility]) [address] [place] [address] VIRChloride [Moles/Vol]108 mmol/VKkytjr07-925XqrEepobmChi St[address] [facility] [place], TxComment on above:Performed By: #### BMP #### [facility] ([facility]) [address] [place] [address] VIRCO2 [Moles/Vol]26 mmol/VPmfsot62-70UkgAbyjbd [facility]ont HospitalComment on above:Performed By: #### BMP #### [facility] ([facility]) [address] [place] [address] VIRCreatinine [Mass/Vol]0.93 mg/dLNormal0.40-1.00[facility] CampusComment on above:Result Comment: METHOD TRACEABLE TO IDMS STANDARDPerformed By: #### BMP #### [facility] ([facility]) [address] [place] [address] VIRGFR/1.73 sq M.predicted among non-blacks MDRD (S/P/Bld) [Vol rate/Area]59 mL/min/{1.73_m2}Low>=60ProChi St. [facility] [place], TxComment on above: Result Comment: Reported eGFR is based on the CKD-EPI 2020 equation that does not use a race coefficient.Performed By: #### BMP #### [facility] ([facility]) [address] [place] [address] VIRGlucose [Mass/Vol]119 mg/tQIqks49-96NgbPimesdChi St. [facility] [place], TxComment on above:Performed By: #### BMP #### [facility] ([facility]) [address] [place] [address] VIRPotassium [Moles/Vol]3.5 mmol/LNormal3.5-5.0ProChi St[facility] [place], TxComment on above:Performed By: #### BMP #### [facility] ([facility]) [address] [place] [address] VIRSodium [Moles/Vol]144 mmol/OCchkxj847-884JecLtsdlu [facility] HospitalComment on above:Performed By: #### BMP #### [facility] ([facility]) [address] [place] [address] VIRUrea nitrogen [Mass/Vol]17 mg/dLNormal5-27ProMedica Dominican HospitalComment on above:Performed By: #### BMP #### [facility] ([facility]) [address] [place] [address] VIRCBC W Auto Differential panel (Bld)on 84-16-5353QSYGIVYE BASOPHIL0.1 10*3/uL0.0 - 0.2 10*3/uLNOMS HealthcareBasophils/100 WBC (Bld)1.7 % NOMS HealthcareDIFFERENTIAL TYPEAUTOMATED DIFFERENTIALNOMS HealthcareComment on above: PERFORMED AT [facility] [address],[place] [address] Eosinophils (Bld) [#/Vol]0.2 10*3/uL0.0 - 0.4 10*3/uLNOMS Healthcare Eosinophils/100 WBC (Bld)2.4 %NOMS HealthcareErythrocyte distribution width (RBC) [Ratio]13.2 %11.5 - 15 %NOMS HealthcareHematocrit (Bld) [Volume fraction] 39.6 %35 - 47 %NOMS HealthcareHemoglobin (Bld) [Mass/Vol]13.7 g/dL11.7 - 15.5 g/dLNOWA HealthcareLymphocytes (Bld) [#/Vol]1.6 10*3/uL1.0 - 3.5 10*3/uLNOMS HealthcareLymphocytes/100 WBC (Bld)19.9 %NOMMissouri Delta Medical CenterMCH (RBC) [Entitic mass] 29.6 pg27 - 34 pgNORipley County Memorial HospitalMCHC (RBC) [Mass/Vol]34.7 g/dL32 - 36 g/dLNORipley County Memorial HospitalMCV (RBC) [Entitic vol]85 fL80 - 100 fLNOWA HealthcareMonocytes (Bld) [#/Vol]0.5 10*3/uL0.0 - 0.9 10*3/uLNOMS HealthcareMonocytes/100 WBC (Bld)6.5 % NOMS HealthcareNeutrophils (Bld) [#/Vol]5.6 10*3/uL1.5 - 6.6 10*3/uLNOMS HealthcareNeutrophils/100 WBC (Bld)69.5 %NOMS HealthcarePlatelet mean volume (Bld) [Entitic vol]8.8 fL7 - 12 fLNOMS HealthcarePlatelets (Bld) [#/Vol]297 10*3/uLNOMS HealthcareRBC (Bld) [#/Vol]4.64 10*6/uLNOMS HealthcareWBC corrected for nucl RBC Auto (Bld) [#/Vol]8.1NOMS [facility] HealthcareCBC WITH AUTO DIFFERENTIALon 46-60-4137TDGVVLKTQ ABSOLUTE COUNT (10*3/UL) BY AUTOMATED COUNT 0.1 10*3/uLNormal0.0-0.2POur Lady of Mercy Hospital - AndersonComment on above:Performed By: #### CBCA #### [facility] ([facility]) [address] [place] [address] VIRBASOPHILS RELATIVE PERCENT BY AUTOMATED COUNT1.7 %Normal [facility] CampusComment on above:Performed By: #### CBCA #### [facility] ([facility]) [address] [place] [address] VIRCELLAVISION DIFFERENTIAL TYPEAUTOMATED DIFFERENTIALNormal [facility] CampusComment on above:Performed By: #### CBCA #### [facility] ([facility]) [address] [place] [address] VIREosinophils (Bld) [#/Vol]0.2 10*3/uLNormal0.0-0.4[facility] CampusComment on above:Performed By: #### CBCA #### [facility] ([facility]) [address] [place] [address] VIREOSINOPHILS RELATIVE PERCENT BY AUTOMATED COUNT2.4 %Normal [facility] CampusComment on above:Performed By: #### CBCA #### [facility] ([facility]) [address] [place] [address] VIRErythrocyte distribution width (RBC) [Ratio]13.2 %Normal 11.5-15[facility] CampusComment on above:Performed By: #### CBCA #### [facility] ([facility]) [address] [place] [address] VIRHematocrit (Bld) [Volume fraction]39.6 %Uuohuq71-40VddYkiqjbSumma Health Akron CampusComment on above:Performed By: #### CBCA #### [facility] ([facility]) [address] [place] [address] VIRHemoglobin (Bld) [Mass/Vol]13.7 g/iQDxldzo76.7-15.5POur Lady of [facility] Hospital - AndersonComment on above:Performed By: #### CBCA #### [facility] ([facility]) [address] [place] [address] VIRLYMPHOCYTES ABSOLUTE COUNT (10*3/UL) BY AUTOMATED COUNT1.6 10*3/uLNormal1.0-3.5POur Lady of [facility] - AndersonComment on above:Performed By: #### CBCA #### [facility] ([facility]) [address] [place] [address] VIRLYMPHOCYTES RELATIVE PERCENT BY AUTOMATED COUNT19.9 %Normal [facility] CampusComment on above:Performed By: #### CBCA #### [facility] ([facility]) [address] [place] [address] VIRMCH (RBC) [Entitic mass]29.6 dtCztynd43-51GedOfsjtgChi [address] [facility] [place], TxComment on above:Performed By: #### CBCA #### [facility] ([facility]) [address] [place] [address] VIRMCHC (RBC) [Mass/Vol]34.7 g/nTSellng49-88EeeOowosdSumma Health [facility] CampusComment on above:Performed By: #### CBCA #### [facility] ([facility]) [address] [place] [address] VIRMCV (RBC) [Entitic vol]85 lNOqsfon49-516AqiIbsbfhSumma Health Akron CampusComment on above:Performed By: #### CBCA #### [facility] ([facility]) [address] [place] [address] VIRMONOCYTES ABSOLUTE COUNT (10*3/UL) BY AUTOMATED COUNT0.5 10*3/uLNormal0.0-0.9[facility] CampusComment on above:Performed By: #### CBCA #### [facility] ([facility]) [address] [place] [address] VIRMONOCYTES RELATIVE PERCENT BY AUTOMATED COUNT6.5 %Normal [facility] CampusComment on above:Performed By: #### CBCA #### [facility] ([facility]) [address] [place] [address] VIRNEUTROPHILS ABSOLUTE COUNT BY AUTOMATED COUNT5.6 10*3/uL Normal1.5-6.6[facility] CampusComment on above:Performed By: #### CBCA #### [facility] ([facility]) [address] [place] [address] VIRNEUTROPHILS RELATIVE PERCENT BY AUTOMATED COUNT69.5 %Normal [facility] CampusComaleda e. lutz [facility] on above:Performed By: #### CBCA #### [facility] ([facility]) [address] [place] [address] VIRPlatelet mean volume (Bld) [Entitic vol]8.8 fLNormal7-12 [facility] CampusComment on above:Performed By: #### CBCA #### [facility] ([facility]) [address] [place] [address] VIRPlatelets (Bld) [#/Vol]297 10*3/iRHvglfr441-469DcnIbupix [facility]ont HospitalComment on above:Performed By: #### CBCA #### [facility] ([facility]) [address] [place] [address] VIRRBC COUNT4.64 X10E12/LNormal3.8-5.2ProMedica Shelby HospitalComment on above:Performed By: #### CBCA #### [facility] ([facility]) [address] [place] [address] VIRWBC (Bld) [#/Vol]8.1 10*3/uLNormal4-11[facility] CampusComment on above:Performed By: #### CBCA #### [facility] ([facility]) [address] [place] [address] VIRHEMOGLOBIN A1Con 12-24-4925Wsjlmig [Mass/Vol]131 mg/dLNormal [facility] CampusComment on above:Performed By: #### HA1C #### [facility] ([facility]) [address] [place] [address] XLVVhK0l (Bld) [Mass fraction]6.2 %High4.4-5.6[facility] CampusComment on above:Result Comment: ADA Guidelines Result HgbA1c Normal : less than 5.7 % Prediabetes : 5.7 % to 6.4 % Diabetes : > 6.4 % Use with caution in patients with abnormal hemoglobin variants as the half-life of red blood cells and in vivo glycation rates are affected.Performed By: #### HA1C #### [facility] ([facility]) [address] [place] [address] VIRLIPID PROFILEon 32-85-5962Oizuyqqvbit [Mass/Vol]172 mg/dL [id number] St. [facility] – [place], TxComment on above:Performed By: #### LIPR #### [facility] ([facility]) [address] [place] [address] VIRCholesterol in HDL [Mass/Vol]51 mg/dLNormal>39ProChi St. [facility] [place], TxComment on above:Result Comment: HDL <40 mg/dL - High Risk HDL > or = 40mg/dL- Desirable HDL >60 mg/dL - Negative RiskPerformed By: #### LIPR #### [facility] ([facility]) [address] [place] [address] VIRCholesterol in LDL [Mass/Vol]82 mg/dLNormal<130Sum[facility] CampusComment on above:Result Comment: LDL <100 mg/dL - Desirable LDL >160 mg/dL - High RiskPerformed By: #### LIPR #### [facility] ([facility]) [address] [place] [address] VIRCHOLESTEROL:HDL3.2Cuubtb6.0-5.0[facility] Comment on above:Performed By: #### LIPR #### [facility] ([facility]) [address] [place] [address] VIRTriglyceride [Mass/Vol]197 mg/dKFlxn16-071YdaWegstyChi St. [facility] [place], TxComment on above:Performed By: #### LIPR #### [facility] ([facility]) [address] [place] [address] VIRVERY LOW KDHHNGCHNJN47 mg/dLHigh0-30Sum[facility] CampusComment on above:Performed By: #### LIPR #### [facility] ([facility]) [address] [place] [address] VIRLIVER PANELon 40-99-6855Pskocba [Mass/Vol]4.0 g/dLNormal 3.2-5.3POur Lady of Mercy Hospital - AndersonComment on above:Performed By: #### LIVR #### [facility] ([facility]) [address] [place] [address] VIRALP [Catalytic activity/Vol]62 U/QYzvfpd06-493NzyXoezwySumma Health Akron CampusComment on above:Performed By: #### LIVR #### [facility] ([facility]) [address] [place] [address] VIRALT [Catalytic activity/Vol]20 U/LNormal<=31POur [facility] - AndersonComment on above:Performed By: #### LIVR #### [facility] ([facility]) [address] [place] [address] VIRAST [Catalytic activity/Vol]22 U/LNormal<=41ProChi St. [facility] [place], TxComment on above:Performed By: #### LIVR #### [facility] ([facility]) [address] [place] [address] VIRBilirubin [Mass/Vol]0.7 mg/dLNormal0.3-1.2POur Lady of Mer[facility] Hospital - AndersonComment on above:Performed By: #### LIVR #### [facility] ([facility]) [address] [place] [address] VIRBilirubin.indirect [Mass/Vol]0.2 mg/dLNormal<=0.4ProChi St[address] [facility] [place], TxComment on above:Performed By: #### LIVR #### [facility] ([facility]) [address] [place] [address] VIRProtein [Mass/Vol]6.1 g/dLNormal6.0-8.0ProChi St[facility] [place], TxComment on above:Performed By: #### LIVR #### [facility] ([facility]) [address] [place] [address] VIRTSHon 31-55-7231DAN3.80 uIU/mLNormal0.49-4.67ProChi St[facility] [place], TxComment on above:Performed By: #### TSH #### [facility] ([facility]) [address] [place] [address] VIRMeasure post void residualon 33-10-3828Ordgyt5zUEwkYywipc Health SystemProOhio Valley Surgical Hospital SystemPOCT Urinalysis Auto, W/O Microscopyon 80-26-1420Bdssmhnz Poct Urine BloodNegativeDetwiler Memorial Hospital SystemExternal Poct Urine GlucoseNegativeDetwiler Memorial Hospital SystemExternal Poct Urine KetonesNegative [facility] SystemExternal Poct Urine Leukocyte EsteraseNegativeProMedica Health SystemExternal Poct Urine NitriteNegativeProMedica Health SystemExternal Poct Urine Ph7.5ProMedica Health SystemExternal Poct Urine ProteinNegative Pro[facility] Health SystemProMedica Health SystemUrine Cultureon 66-60-6912Ropduzqk identified Cx Nom (U)50,000 colonies/ml mixed bacterial skin contaminants 2 Days PERFORMED BY: [facility] [address] [place] [address] PATHOLOGIST SENIOR PRODUCT ANALYST DANITZA RODRIGUEZ M.D.NormalDelray Medical Center Physician GroupComment on above: Performed By: #### CUU #### [facility] [address] [place] [address] USACoding Summaryon 21-69-8294Kozwvs SummaryHTMLBase 64 NpothceaCAr7lPp+PGhlYWQ+KT6UFEXpO21hwYKnuA1gB7PGDWvZQpatCYKZVCnMOeZoggLkGL1ciBGl ZXJu [file] YXB (more content not included)...Riverview Health InstituteCT Head or Brain w/o Contraston 27-87-3131PT Head or Brain w/o ContrastEXAMINATION: CT Head or Brain w/o Contrast, , [...] Franc Caballero MD 06/04/23 2:35 pm Technologist: MISSYCincinnati Shriners HospitalCT Spine Cervical w/o Contraston [id number] Spine Cervical w/o ContrastEXAM TYPE: CT Spine Cervical w/o Contrast EXAM [...] or traumatic malalignment. Final Dictated by: Sebas Ochao MD Dictated DT/TM: 06/04/23 1:50 Signed (Electronic Signature): Sebas Ochoa MD 06/04/23 1:52 pm Technologist: MISSYCincinnati Shriners HospitalED Clinical Summaryon [id number] Clinical [facility] Department [address] [place], [place] [id number] ED Clinical Summary PERSON INFORMATION Name: MARLEY MORALEZ Age: 87 Years Sex: FEMALE : 1935 MRN: Acct#: Visit Reason: FALL- HEAD/NOSE LACERATION Arrival: 06/04/2023 12:48:15 Discharge: 06/04/2023 14:38:00 LOS: 000 01:50 Check In: 06/04/2023 12:48:15 Checkout:06/04/2023 14:38:00 Address: [address] [place] [address] PCP: JERALD HAZEL PROVIDER INFORMATION Provider Role Assigned Unassigned Bean Starkey MD ED Provider 06/04/2023 12:54:32 Nury Mclaughlin RN ED Nurse 06/04/2023 13:13:36 VITALS INFORMATION Vital Sign [...] PATIENT EDUCATION INFORMATION Instructions: Sutured Wound Care, Fzal-mk-Iggu; Abrasion, Ufeh-gq-Erfk; Hypertension, Adult, Aigv-ao-Dmls; Facial Laceration, Vnkp-el-Gnny Follow-Up: With: Address: When: Follow up with primary care provider Within 3 to 5 days DIAGNOSIS: 1:Laceration of face; 2:Abrasion of face; 3:Abrasion of hand and fingers; 4:Abrasion of right knee;5:Elevated blood pressure reading; Abrasion of unspecified finger, initial encounter Patient Understands: Yes - Patient/family/caregiver verbalizes understanding of instructions given Comment:[facility]iverview Health InstituteED Note-Nursingon 62-17-2884JS Note-NursingPt ambulatory back to ED room 8 with [...] Pt states just worried about my nose oMercy Health Kings Mills HospitalED Patient Summaryon [id number] Patient [facility] [address] [place] [address] PATIENT DISCHARGE INSTRUCTIONS Patient Information Name: MARLEY MORALEZ Age: 87 Years Date of : 1935 [facility]: [id number] Reason For Visit: FALL- HEAD/NOSE LACERATION Arrival Time: 06/04/2023 12:48:15 Primary Care Physician: JERALD HAZEL Attending Physician: Bean Starkey MD Comment: Visit Diagnosis: Diagnoses This Visit Abrasion of face (S00.81XA) Abrasion of hand and fingers (S60.519A) Abrasion of right knee (S80.211A) Abrasion of unspecified finger, initial encounter (S60.419A) Elevated blood pressure reading (R03.0) Laceration of face (S01.81XA) The Pharmacy at [facility] is open Wednesday through Wednesday from 9A to 6P and Wednesday and Wednesday from 9A to 5P Prescription Information: If you have been given a prescription for narcotics, seek immediate medical attention if you have any difficulty breathing or any sudden status changes such as confusion andsleepiness. If you or anyone you know is experiencing suicidal thoughts, mental health, alcohol and/or drug addiction problems; contact the [facility] 21/09 Crisis Hotline -Text 4XCIN ed 486664. If you received any narcotics, sedation, or [...] and treatment you received today in the [facility] Emergency Department were for an urgent problem and are not intended as complete care. It is important for you to follow up with a doctor, nurse practitioner, or physician?s pediatric dental assistant for ongoing care. If your symptoms become worse or you donot improve as expected and you are unable [...] so we can reach you if necessary. [facility] Emergency Department has provided you with a complete list of medications post discharge. Please inform your podiatric surgeon/provider of your visit and for further instruction [...] solution) 1 Drops Ophthalmic (the eye) once aday (at bedtime). pantoprazole 40 Milligram Oral (given [...] your doctor (nonabsorbable). Taking good care of yourwound can help to prevent pain and infection. It can also help your wound heal more quickly. Followinstructions from your doctor about how to care for your sutured wound. Supplies needed: ? Soap and water. ? A clean, dry towel. ? Solution to clean your wound, if needed. ? A (more content not included)...NormalMagruder HospitalUA Irjdd5wd 06-04-2023 UA RBCNone SeenUC Medical Center HospitalComment on above:Order Comment: Urinalysis Microscopic order added on by [employer] Expert Rules system.Performed By: #### [id number], [id number] #### [facility] (DEFAULT) [address] [place] [id number] WBCNone SeenUC Medical Center HospitalComment on above: Order Comment: Urinalysis Microscopic order added on by [employer] Expert Rules system.Performed By: #### [id number], [id number] #### [facility] (DEFAULT) [address] [place] [address] Amorph.1+NormalUpper Valley Medical Center HospitalComment on above:Order Comment: Urinalysis Microscopic order added on by [employer] Expert Rules system. Performed By: #### [id number], [id number] #### [facility] (DEFAULT) [address] [place], [place] [address]UA BacteriaRareNormalUpper Valley Medical Center HospitalComment on above: Order Comment: Urinalysis Microscopic order added on by [employer] Expert Rules system.Performed By: #### [id number], [id number] #### [facility] (DEFAULT) [address] [place] [address] CA Ox Crystal2+NormalUpper Valley Medical Center HospitalComment on above: Order Comment: Urinalysis Microscopic order added on by [employer] Expert Rules system.Performed By: #### [id number], [id number] #### [facility] (DEFAULT) [address] [place], [place] [address]UA w Culture if Ind Standardon 94-33-5932Lwepyvaskc UA NormalUpper Valley Medical Center HospitalComment on above:Performed By: #### [id number], [id number] #### [facility] (DEFAULT) [address] [place] [address] 227[address]Qwybr (U)YellowNormBluffton Hospital HospitalComment on above: Performed By: #### [id number], [id number] #### [facility] (DEFAULT) [address] [place] [address] 117[address]Bzfmwgk?NoNormalMagruder HospitalComment on above:Result Comment: Result created by rule GL_MAGR_ADD_UA_CULT Result created by rule GL_MAGR_ADD_UA_CULT1Performed By: #### [id number], [id number] #### [facility] (DEFAULT) [address] [place] [address] 94[address]Bkcjzne (U) [Mass/Vol]NegativeNormalNdgrcenterville Hospital Comment on above:Performed By: #### [id number], [id number] #### [facility] (DEFAULT) [address] [place] [address]Vfzjdzg Ql (U)TRACENormalNdgrcenterville HospitalComment on above:Performed By: #### [id number], [id number] #### [facility] (DEFAULT) [address] [place] [address] 46090Mtdcj?IndicatedInvalid Interpretation CodeMagruder HospitalComment on above:Result Comment: Result created by rule GL_MAGR_ADD_UA_MICROPerformed By: #### [id number], [id number] #### [facility] (DEFAULT) [address] [place] [address] 05381BQ BilirubinNegativeNormalUpper Valley Medical Center HospitalComment on above:Performed By: #### [id number], [id number] #### [facility] (DEFAULT) [address] [place] [address] 609[address]BB BloodNegativeNormalNEGATIVEMagrcenterville HospitalComment on above:Performed By: #### [id number], [id number] #### [facility] (DEFAULT) [address] [place] [address] 95[address]HS ClarityCLEARNormalCLEARNdgrcenterville HospitalComment on above:Performed By: #### [id number], [id number] #### [facility] (DEFAULT) [address] [place] [address] 90888PP Leuk EstNegativeNormalNEGATIVENdgrcenterville HospitalComment on above:Performed By: #### [id number], [id number] #### [facility] (DEFAULT) [address] [place] [address] 390[address]PH NitriteNegativeNormalNEGATIVEUpper Valley Medical Center HospitalComment on above:Performed By: #### [id number], [id number] #### [facility] (DEFAULT) [address] [place] [address] 845[address]LE pH6.4Ywjawc3-5Glogckmb HospitalComment on above: Performed By: #### [id number], [id number] #### [facility] (DEFAULT) [address] [place] [address] 989[address]XA ProteinTRACEAbnormalNEGBellevue Hospital HospitalComment on above:Performed By: #### [id number], [id number] #### [facility] (DEFAULT) [address] [place] [address] 17704EC Spec Grav>=1.703Apzwrp5.001-1.035[facility] Comment on above:Performed By: #### [id number], [id number] #### [facility] (DEFAULT) [address] [place] [address] 87295LD Urobilinogen0.2 mg/dLNormal0.2-1.0[facility] Comment on above:Performed By: #### [id number], [id number] #### [facility] (DEFAULT) [address] [place] [address]Ohopg SourceClean CatchNoFisher-Titus Medical CenterComment on above:Performed By: #### [id number], [id number] #### [facility] (DEFAULT) [address] [place] [address]57[address]YP Knee Complete Righton 67-86-7667OS Knee Complete Right EXAM: Right knee HISTORY: [...] Relatively mild degenerative changes. Final Dictated by: James Forman MD Dictated DT/TM: 06/04/23 2:01 Signed (Electronic Signature): James Forman MD 06/04/23 2:02 pm Technologist: LTCOhioHealth Arthur G.H. Bing, MD, Cancer CenterXR LSPINE 2_3 VIEWSon 40-92-0260BP LSPINE 2_3 VIEWSEXAMINATION: XR LSPINE 2_3 VIEWS HISTORY: Low back [...] Electronically authenticated by: MICHAEL WHITE Date: 2021-09-17 21:47NoOhioHealth Grant Medical Center AUTO DIFFon 37-09-9984LCJL #0.1 103/ulNormal0.0-0.1[facility]-Hyde Memorial HospitalComment on above:Performed By: #### CBC #### [facility] [address] [address] [address] Issa LastBasophils/100 WBC (Bld)1.1 %Normal0.2-2.0[facility] Comment on above:Performed By: #### CBC #### [facility] [address] [address] [address] Issa Aguilar #0.2 103/ulNormal0.0-0.7ThCleveland Clinic Mercy HospitalComment on above: Performed By: #### CBC #### [facility] [address] [address] [address] Issa Christiansonosinophils/100 WBC (Bld)2.7 %Normal0.9-7.0[facility] Comment on above:Performed By: #### CBC #### [facility] [address] [address] [address] Issa Christiansonrythrocyte distribution width (RBC) [Ratio]12.6 %Vobskz30.0-15.[address] Anne HospitalComment on above:Performed By: #### CBC #### [facility] [address] [place] [address] Dr. Issa LastHematocrit (Bld) [Volume fraction]41.9 %Gcmgay75.0-48.0The [facility] Anne HospitalComment on above:Performed By: #### CBC #### [facility] [address] [place] [address] Dr. Issa LastHemoglobin (Bld) [Mass/Vol]13.5 g/xLBsixor14.0-16.0The [facility] HospitalComment on above:Performed By: #### CBC #### [facility] [address] [place] [address] Dr. Issa John #0.02 10e3/ulNormal0.00-0.03The [facility] HospitalComment on above:Performed By: #### CBC #### [facility] [address] [place] [address] Dr. Issa John %0.3 %Normal0.0-0.5The [facility] HospitalComment on above: Performed By: #### CBC #### [facility] [address] [place] [address] Dr. Issa Nesbitt #1.7 103/ulNormal1.2-3.8The [facility] HospitalComment on above:Performed By: #### CBC #### [facility] [address] [place] [address] Dr. Issa Cantrellhocytes/100 WBC (Bld)25.2 %Pywmih01.5-60.0The [facility] HospitalComment on above:Performed By: #### CBC #### [facility] [address] [place] [address] Dr. Issa MontgomeryUAL DIFF REQNONormalThe [facility] St. Anne HospitalComment on above: Performed By: #### CBC #### [facility] [address] [place] [address] Dr. Issa Noe (RBC) [Entitic mass]29.8 zkLffwmh82.7-34.0The [facility] HospitalComment on above:Performed By: #### CBC #### [facility] [address] [place] [address] Dr. Issa Marlow (RBC) [Mass/Vol]32.2 g/gWIwkpld57.9-35.2The [facility] HospitalComment on above:Performed By: #### CBC #### [facility] [address] [place] [address] Dr. Issa Marlow (RBC) [Entitic vol]92.5 xAQgywqw75.0-99.0The [facility] HospitalComment on above:Performed By: #### CBC #### [facility] [address] [place] [address] Dr. Issa Hay #0.5 103/ulNormal0.3-0.8The [facility] HospitalComment on above:Performed By: #### CBC #### [facility] [address] [place] [address] Dr. Issa Cobianocytes/100 WBC (Bld)6.9 %Normal1.7-12.0The [facility] Comment on above:Performed By: #### CBC #### [facility] [address] [place] [address] Dr. Issa Elise #4.2 103/ulNormal1.4-6.5The [facility] HospitalComment on above:Performed By: #### CBC #### [facility] [address] [place] [address] Dr. Issa Harkinsophils/100 WBC (Bld)63.8 %Rnlgco81.0-75.0The [facility] HospitalComment on above:Performed By: #### CBC #### [facility] [address] [place] [address] Dr. Issa Li mean volume (Bld) [Entitic vol]10.3 fLNormal9.5-13.5The [facility] HospitalComment on above:Performed By: #### CBC #### [facility] [address] [place] [address] Dr. Issa LastPLT278 103/ayThzrai492-234Flo [facility] on above: Performed By: #### CBC #### [facility] [address] [place] [address] Dr. Issa LastRBC4.53 106/ulNormal4.20-5.40The [facility] on above:Performed By: #### CBC #### [facility] [address] [place] [address] Dr. Issa LastWBC6.6 103/ulNormal4.0-11.0The [facility] on above: Performed By: #### CBC #### [facility] [address] [place] [address] Dr. Issa LastGLYCOHEMOGLOBIN A1Con 85-90-7274RMR RECOMMENDATIONSEE BELOWOhiohealth Grant Medical CenterComaleda e. l[facility] on above:Result Comment: ADA RECOMMENDED LIMIT 4.0 - 6.0 ADA THERAPEUTIC TARGET < 7.0 ACTION SUGGESTED > 7.0Performed By: #### A1C #### [facility] [address] [place] [address] Dr. Issa LastGlucose [Mass/Vol]108 mg/dLSelect Medical Specialty Hospital - [place] on above:Performed By: #### A1C #### [facility] [address] [place] [address] Dr. Issa LastHbA1c (Bld) [Mass fraction]5.4 %Normal4.5-6.2The [facility] on above:Performed By: #### A1C #### [facility] [address] [place] [address] Dr. Issa LastLIPID PROFILEon 63-30-2775SEFR-HDL RATIO NORMSEE Med[facility] HospitalComaleda e. [facility] on above:Result Comment: 3.3 - 4.4 LOW RISK 4.4 - 7.1 AVERAGE RISK 7.1 - 11.0 MODERATE RISK >11.0 HIGH RISKPerformed By: #### LIVER, BMP, LIPID, TSH #### [facility] [address] [place] [address] Dr. Isas LastCholesterol [Mass/Vol]157 mg/dLNormal<=200[facility] Comment on above:Performed By: #### LIVER, BMP, LIPID, TSH #### [facility] [address] [address] [address] Issa Angeloesterol in HDL [Mass/Vol]65 mg/dLCritically qgwv06-91LrnTrihealth Mccullough-Hyde Memorial HospitalComment on above:Performed By: #### LIVER, BMP, LIPID, TSH #### [facility] [address] [address] [address] Issa Angeloesterol in LDL [Mass/Vol]66.6 mg/dLRiverview Health InstituteComment on above:Performed By: #### LIVER, BMP, LIPID, TSH #### [facility] [address] [address] [address] Issa George.total/Cholesterol in HDL [Mass ratio]2.4 {ratio} NormalTrihealth Mccullough-Hyde Memorial HospitalComment on above:Performed By: #### LIVER, BMP, LIPID, TSH #### [facility] [address] [address] [address] Issa LastHDKatrin NORMAL> or = 60 mg/dl - LOW CARDIOVASCULAR RISK <40 mg/dl - HIGH CARDIOVASCULAR RISKRiverview Health InstituteComment on above:Performed By: #### LIVER, BMP, LIPID, TSH #### [facility] [address] [address] [address] Issa LastLDL CALC NORMALSEE BELOWNoMercy Health – The Jewish HospitalComment on above:Result Comment: <100 mg/dl OPTIMAL 100 - 129 mg/dl NEAR OR ABOVE OPTIMAL 130 - 159 mg/dl BORDERLINE HIGH 160 - 189 mg/dl HIGH >190 mg/dl VERY HIGH Performed By: #### LIVER, BMP, LIPID, TSH #### [facility] [address] [address] [address] Issa LastTriglyceride [Mass/Vol]127 mg/dLNormal<=150[facility] Comment on above:Performed By: #### LIVER, BMP, LIPID, TSH #### [facility] [address] [address] [address] Issa JerniganLDL CALC25.4 mg/dLNormalThe [facility] St[facility] Anne HospitalComment on above: Performed By: #### LIVER, BMP, LIPID, TSH #### [facility] [address] [address] [address] Issa Gonzalez PROFILEon 64-24-3875Wvbzdnr [Mass/Vol]3.9 g/dLNormal3.4-5.[address] Anne HospitalComment on above:Performed By: #### LIVER, BMP, LIPID, TSH #### [facility] [address] [address] [address] Issa LastAlbumin/Globulin [Mass ratio]1.3 {ratio}NormalThe [facility] on above:Performed By: #### LIVER, BMP, LIPID, TSH #### [facility] [address] [place] [address] Dr. Issa oGnzalez [Catalytic activity/Vol]56 U/LIwtfzt47-151Sak [facility] Anne HospitalComment on above:Performed By: #### LIVER, BMP, LIPID, TSH #### [facility] [address] [place] [address] Dr. Issa Wong [Catalytic activity/Vol]24 U/VJntdvr31-56Sqz [facility] on above:Performed By: #### LIVER, BMP, LIPID, TSH #### [facility] [address] [place] [address] Dr. Issa Maldonado [Catalytic activity/Vol]17 U/AMnjtec15-52Mcq [facility] Hospitalment on above:Performed By: #### LIVER, BMP, LIPID, TSH #### [facility] [address] [place] [address] Dr. Issa Landon, CONJUGATED0.2 mg/dLNormal0.0-0.2The [facility] Comment on above:Performed By: #### LIVER, BMP, LIPID, TSH #### [facility] [facility] [address] [address] [address] Issa Jainirubin [Mass/Vol]0.8 mg/dLNormal0.2-1.0[facility] Comment on above:Performed By: #### LIVER, BMP, LIPID, TSH #### [facility] [address] [address] [address] Issa LastGlobulin (S) [Mass/Vol]3.0 g/dLNormalThe [facility] Anne HospitalComment on above:Performed By: #### LIVER, BMP, LIPID, TSH #### [facility] [address] [place] [address] Dr. Issa LastProtein [Mass/Vol]6.9 g/dLNormal6.4-8.2The [facility] Comment on above:Performed By: #### LIVER, BMP, LIPID, TSH #### [facility] [address] [place] [address] Dr. Issa LastPROF CHEM 8 (BAS METB)on 31-77-4171Rbxgq gap [Moles/Vol]13.1 mmol/LNormalThe [facility] HospitalComment on above:Performed By: #### LIVER, BMP, LIPID, TSH #### [facility] [address] [place] [address] Dr. Issa LastCalcium [Mass/Vol]8.8 mg/dLNormal8.5-10.1[facility] Comment on above:Performed By: #### LIVER, BMP, LIPID, TSH #### [facility] [address] [place] [address] Dr. Issa LastChloride [Moles/Vol]108 mmol/LCritically cagm98-791NuyTrihealth Mccullough-Hyde Memorial HospitalComment on above:Performed By: #### LIVER, BMP, LIPID, TSH #### [facility] [address] [place] [address] Dr. Issa LastCO2 [Moles/Vol]27.2 mmol/MYmssjw86.0-32.0The [facility] Comment on above:Performed By: #### LIVER, BMP, LIPID, TSH #### [facility] [address] [place] [address] Dr. Issa LastCreatinine [Mass/Vol]0.88 mg/dLNormal0.55-1.02[facility] HospitalComment on above:Performed By: #### LIVER, BMP, LIPID, TSH #### [facility] [address] [address] [address] Issa ChristiansonGFR-AF INDONESIAN>60Normal>=60The [facility] HospitalComment on above:Performed By: #### LIVER, BMP, LIPID, TSH #### [facility] [address] [address] [address] Issa ChristiansonGFR-NON AF INDONESIAN>60Normal>=60The [facility] HospitalComment on above:Performed By: #### LIVER, BMP, LIPID, TSH #### [facility] [address] [place] [address] Dr. Issa LastGlucose [Mass/Vol]99 mg/mFXjmyyn98-305KopTrihealth Mccull[facility] Comment on above:Performed By: #### LIVER, BMP, LIPID, TSH #### [facility] [address] [place] [address] Dr. Issa LastPotassium [Moles/Vol]4.3 mmol/LNormal3.5-5.1[facility] Comment on above:Performed By: #### LIVER, BMP, LIPID, TSH #### [facility] [address] [place] [address] Dr. Issa LastSodium [Moles/Vol]144 mmol/PEiqhjb762-112PhpTrihealth Mccull[facility] Comment on above:Performed By: #### LIVER, BMP, LIPID, TSH #### [facility] [address] [place] [address] Dr. Issa LastUrea nitrogen [Mass/Vol]17.0 mg/dLNormal7.0-18.0The [facility] HospitalComment on above:Performed By: #### LIVER, BMP, LIPID, TSH #### [facility] [address] [place] [address] Dr. Issa LastUrea nitrogen/Creatinine [Mass ratio]19.3 mg/mgNormalThe [facility] HospitalComment on above:Performed By: #### LIVER, BMP, LIPID, TSH #### [facility] [address] [place], [place] [address] Dr. Issa Whitaker 58-68-5088VRD9.613 uIU/mLNormal0.358-3.740[facility] HospitalComment on above:Performed By: #### LIVER, BMP, LIPID, TSH #### [facility] [address] [place] [address] Dr. Issa Ulloa [facility] HospitalComment on above: Result Comment: <0.34 UIU/ml HYPERTHYROID 0.34-5.60 UIU/ml EUTHYROID >5.60 UIU/ml HYPOTHYROIDPerformed By: #### LIVER, BMP, LIPID, TSH #### [facility] [address] [place] [address] Dr. Issa Last Vital Signs Date TimeVital SignValuePerforming ZtkgdedolPehbwkec07-87-6878 11:00-0400Body mvqyro413.6 cmJerald Hazel MD Work Phone: [facility] HospitalFwrxxqxunk32-84-8485 11:00-0400Body mass index (BMI) [Ratio]24.37 kg/m2Jerald Hazel MD Work Phone: [facility] HospitalKrrgpuyjiu28-68-8866 11:00-0400Body temperature 97.11 [degF]Jerald Hazel MD Work Phone: [facility] HospitalMmfhootjjg75-02-5661 11:00-0400Body fhdamk39.41 kgJerald Hazel MD Work Phone: [facility] HospitalVsjaxwjalv46-92-1756 11:00-0400Diastolic blood ryyfnefm16 mm[Hg]Jerald Hazel MD Work Phone: [facility] HospitalUrdinjdnei51-03-3252 11:00-0400Heart rate77 /min Jerald Hazel MD Work Phone: [facility] HospitalTthzatvhkg64-14-0385 11:00-0400Respiratory rate20 /minJerald Hazel MD Work Phone: [facility] HospitalHderpjeuvv11-00-8991 11:00-4730MqV1% (BldA) [Mass fraction]96 %Jerald Hazel MD Work Phone: [facility] HospitalEtckijtvnf98-82-6780 11:00-0400Systolic blood kbiqppun424 mm[Hg]Jerald Hazel MD Work Phone: [facility] HospitalOoxwsmcapb88-00-9618 10:06-0400Body xgdieo681.6 cmNorah MAXWELL Work Phone: [facility]06-25-2025 10:06-0400Diastolic blood ttjegzrg18 mm[Hg]Norah MAXWELL Work Phone: [facility]06-25-2025 10:06-0400Heart rate 65 /minNorah MAXWELL Work Phone: [facility]06-25-2025 10:06-0400Systolic blood tgizxpyi458 mm[Hg]Norah MAXWELL Work Phone: [facility]04-19-2025 12:04-0400Diastolic blood dqsmjioj67 mm[Hg][facility]04-19-2025 12:04-0400 Systolic blood utwzrjjk772 mm[Hg][facility]04-19-2025 11:54-0400Body qbcaxg290.56 cm[facility]04-19-2025 11:54-0400Body mass index (BMI) [Ratio]25.7 kg/y1AqwtwfqtiEast [place] [facility] Hospital04-19-2025 11:54-0400Body whtuvijtzcc59.2 [degF][facility]04-19-2025 11:54-0400Body puhjwr09.03 kg[facility] 06-17-2024 11:54-0400Heart rate71 /[facility] 06-17-2024 11:54-0400Respiratory rate18 /[facility] 06-17-2024 11:54-4880UaP6% (BldA) [Mass fraction]97 %[facility]12-12-2024 10:57-0500Body qrpaoe483.6 cmJerald Hazel MD Work Phone: [facility] HospitalYezbnmmjkv50-69-8687 10:57-0500Body mass index (BMI) [Ratio]25.4 kg/m2Jerald Hazel MD Work Phone: [facility] HospitalIijkbvhtww95-73-3345 10:57-0500Body temperature 97.11 [degF]Jerald Hazel MD Work Phone: [facility] HospitalShsdnzhhhi39-04-7462 10:57-0500Body apbsht94.13 kgJerlad Hazel MD Work Phone: [facility] HospitalQaakxmpjak76-85-7461 10:57-0500Diastolic blood tgmlglos18 mm[Hg]Jerald Hazel MD Work Phone: [facility] HospitalQgumlxthfi45-14-9738 10:57-0500Heart rate64 /min Jerald Hazel MD Work Phone: [facility] HospitalHczcpnsern24-48-7453 10:57-0500Respiratory rate20 /minJerald Hazel MD Work Phone: [facility] HospitalDibzvwxets96-36-0914 10:57-3112MkX6% (BldA) [Mass fraction]98 %Jerald Hazel MD Work Phone: [facility] HospitalGerluspjrf66-10-6801 10:57-0500Systolic blood ucvzggln126 mm[Hg]Jerald Hazel MD Work Phone: [facility] HospitalJruetipgvl99-55-2234 15:13-0400Body .56 cm[facility]08-20-2024 15:13-0400Body mass index (BMI) [Ratio]26.2 kg/q6JpmxieoobEast [place] Regional Hospital08-20-2024 15:13-0400Body duidxgyigsx26.7 [degF][facility]08-20-2024 15:13-0400Body xjdylq79.11 kg[facility]08-20-2024 15:13-0400Heart rate 71 /[facility]08-20-2024 15:13-0400Respiratory rate18 /[facility]08-20-2024 15:13-8323WpJ3% (BldA) [Mass fraction]98 %[facility] Encounters Encounter DateEncounter TypeCare ProviderFacilityStart: 09-06-2024 End: 93-48-5619Morcjatd Result EncounterJerald Hazel MD Work Phone: [facility] External Department UnsolicitedStart: 09-06-2024 End: 15-63-4748Zanwqaqg Result EncounterJerald Hazel MD Work Phone: [facility] External Department UnsolicitedStart: 09-06-2024 ambulatorySelect Medical TriHealth Rehabilitation Hospitaltart: 09-05-2024 End: 85-29-6057Ynjxux flowsDante Hazel MD Work Phone: n[facility] CWM FMStart: 09-05-2024 End: 42-62-3635Almaxu flowsDante Hazel MD Work Phone: [facility] CWM FMStart: 09-05-2024 End: 65-41-1456Wwrbvjy encounter procedureJerald Hazel MD Work Phone: [facility] Work Phone: Start: 09-05-2024 End: 11-21-9668Sbgpvu follow up visit related to original Lori Hazel MD Work Phone: [facility]oms CW FMComment on above:Medicare annual wellness visit, subsequent (Primary Dx); Encounter for long-term current use of medication; Dyslipidemia ; Prediabetes; Fatigue, unspecified typeStart: 09-05-2024 End: 25-49-9156lqkgygcobqLVAS NADERERNot AvailableStart: 08-23-2024 End: 85-45-1339Nvuvku outpatient new 30 minutesNorah MAXWELL Work Phone: [facility] Genito-Urinary SurgeonsComment on above:Urinary frequency (Primary Dx)Start: 08-23-2024 End: 18-13-2386ndbwozhxxgHXXVRJPC I MURPHYC[facility] Start: 07-20-2024 End: 40-32-8677dkwgazlcejYAMM NADERERNot AvailableStart: 07-07-2024 End: 02-48-0671Oquluemnw Result EncounterGeneric External Data ProviderNOMS External Department UnsolicitedStart: 07-07-2024 End: 49-06-8545Tgjhxheje Result EncounterGeneric External Data ProviderNOMS External Department UnsolicitedStart: 07-07-2024 End: 96-16-2348whcxuwaxauBrohpyq CarolynFacility:[facility] Hospitaltart: 07-07-2024 End: 41-65-8045Ccuhluqk ReferredNovant Health [facility]ant[facility] Karolpa PANDA Work Phone: [facility] Path Spec [facility] HospStart: 06-17-2024 End: 29-49-1608uktqvirohbDytpgwozlOhio Valley Surgical Hospital Work Phone: Start: 06-17-2024 End: 29-19-7444Lddgfgx encounter procedureQuorum Health Physician [facility] [place] Work Phone: Start: 02-10-2024 End: 59-30-8951Oytnlw Christina Hazel MD Work Phone: NOSE CWM FMStart: 02-10-2024 End: 97-84-0775Ihcnmi flowsDante Hazel MD Work Phone: [facility] CWM FMStart: 02-10-2024 End: 77-39-9841Cbpydp outpatient visit 25 minutesJerald Hazel MD Work Phone: [facility] CWM FMComment on above:Chronic osteoarthritis (Primary Dx); 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; Chronic constipationStart: 02-10-2024 End: 01-26-5221dnxtwmpxazYNOQ NADERERNot AvailableStart: 10-19-2023 End: 99-79-8948azppsehyksIgroactuyOhio Valley Hospital Work Phone: Start: 10-19-2023 End: 33-89-2745Gwkvjpp encounter procedureQuorum Health Physician [facility] [place] Work Phone: Start: 77-02-0542Kzbdnti encounter procedureMar Neyda ADAMS Work Phone: NOWA HealthcareStart: 06-04-2023 End: 19-15-7892Laupqrvoa department patient visitMARC A NADERERFacility:[facility] HospitalStart: 03-10-2022 End: 17-38-5058rqnqlvxsswYU JAMES CHOSFacility:X6Jivqf: 09-19-2021 End: 19-26-4309tzveqbdzajRIRWCC Arjun FAWWADFacility:W7Oqedy: 09-17-2021 End: 79-42-7253kwxgwlattyFC MICHAEL LÓPEZERFacility:M3Zymlt: 07-30-2021 End: 21-44-5539bwatktrakwGK JERALD Rodriguez NADERERFacility:H1 Procedures DateProcedureProcedure DetailPerforming ClinicianStart: 84-57-9741Vhfquamm blood count with white cell differential, automatedMarc Neyda ADAMS Work Phone: Start: 02-09-5089Ienjp dip stick/tablet rgnt auto w/o microscopyMichelle I Bruce MAXWELL Work Phone: Start: 26-80-2147KJNAIHW POST VOID RESIDUALMichelle I Bruce MAXWELL Work Phone: Start: 07-13-1860SRIYZ CULTURE - [facility] External Data Provider Plan of Treatment DateCare ActivityDetailAuthorStart: 96-80-1446UMrK,Tdap and Td Vaccines (3 - Td or Tdap)DTaP,Tdap and Td Vaccines (3 - Td or Tdap)[facility] SystemStart: 07-08-2026Medicare Annual Wellness (AWV)Medicare Annual Wellness (AWV)[facility] HealthcareStart: 92-38-2681Dfghvgp ScreeningTobacco ScreeningProMary Rutan Hospitalca Health SystemStart: 03-08-2025 End: 73-19-6336Ihxfiid encounter ptcjcxfpu23/08/2026 11:00 AM EST Office Visit [facility] [address] [place] [phone] Jerald Hazel MD [address] [place] [address] [facility] SAJI FMStart: 77-70-3484Mjoaidyvs [facility] Start: 09-05-2024 End: 93-62-3564Qtjfk metabolic 1998 panel - Serum or PlasmaBasic metabolic panel Lab Routine Encounter for long-term current use of medication Expected: 2024 (Approximate), Expires: 09/05/2025[facility] HealthcareComment on above:Expected: 09/05/2024 (Approximate), Expires: 09/05/2025Start: 09-05-2024 End: 86-79-9173NMT W Auto Differential panel - BloodCBC and differential Lab Routine Encounter for long-term current use of medication Expected: 09/05/2024 (Approximate), Expires: 09/05/2025[facility] HealthcareComment on above:Expected: 09/05/2024 (Approximate), Expires: 09/05/2025Start: 09-05-2024 End: 05-31-3258Gnefmnzpie A1c/Hemoglobin.total in BloodHemoglobin A1c Lab Routine Prediabetes Expected: 09/05/2024 (Approximate), Expires: 09/05/2025[facility] Healthcare Work Phone: Comment on above:Expected: 09/05/2024 (Approximate), Expires: 09/05/2025Start: 09-05-2024 End: 75-69-2530Ilxifsq function 2000 panel - Serum or PlasmaHepatic function panel Lab Routine Encounter for long-term current use of medication Expected: 09/05/2024 (Approximate), Expires: 09/05/2025[facility] HealthcareComment on above: Expected: 09/05/2024 (Approximate), Expires: 09/05/2025Start: 09-05-2024 End: 82-27-1323Xqmrl 1996 panel - Serum or PlasmaLipid panel Lab Routine Dyslipidemia Expected: 09/05/2024 (Approximate), Expires: 09/05/2025[facility] HealthcareComment on above:Expected: 09/05/2024 (Approximate), Expires: 09/05/2025Start: 09-05-2024 End: 02-21-1095Ppeocisamow [Units/volume] in Serum or PlasmaTSH Lab Routine Fatigue, unspecified type Expected: 09/05/2024 (Approximate), Expires: 09/05/2025[facility] HealthcareComment on above:Expected: 09/05/2024 (Approximate), Expires: 09/05/2025Start: 09-05-2024 End: 63-18-3927Ziamedu encounter procedureNOMS [facility] FMComment on above:Arrived Start: 06-26-2025Medicare Annual Wellness (AWV)Medicare Annual Wellness (AWV) [facility] HealthcareStart: 27-05-9244Yapraldz identified in Urine by CultureUrine [facility] Medical Centertart: 05-55-7456Zjcce cultureMemorial Hospitaltart: 02-10-2024 End: 00-31-0238Ejjfdrb encounter sepcxpvcu45/12/2024 11:00 AM EST Office Visit [facility] [address] [place] [phone] Jerald Hazel MD [address] [place] [address] ArrivedNONORMAN REGIONAL HEALTHPLEX – NOR[facility] FMComment on above:ArrivedStart: 38-24-7091QTUKX-19 Vaccine ( season)COVID-19 Vaccine ( season)[facility] SystemStart: 54-42-0674Encviqhdw vaccinationInfluenza Vaccine (#1)[facility] HealthcareStart: 83-29-6686Mwdisssvokrz Vaccine: 65+ Years (2 of 2 - PCV) Pneumococcal Vaccine: 65+ Years (2 of 2 - PCV)[facility] HealthcareStart: 2001 Fall Risk ScreeningFall Risk ScreeningDetwiler Memorial Hospital SystemStart: 1986 Administration of varicella zoster vaccineZoster (Shingles) Vaccine (1 of 2) [facility] SystemStart: 72-16-5696Teptqgybyp ScreeningDepression Screening [facility] SystemStart: 04-08-1937Medicare Annual Wellness (AWV)Medicare Annual Wellness (AWV)[facility] Routine 07/07/2024 1:50 PM EDTNORipley County Memorial Hospital Immunizations Immunization DateImmunizationNotesCare FksokiwcLecqwvyz84-05-4658wyymdrmww virus vaccine, unspecified formulationJerald Hazel MD Work Phone: [facility] HospitalCufdfaghda29-04-4554rbibvbx and diphtheria toxoids, adsorbed, preservative free, for adult use (5 Lf of tetanus toxoid and 2 Lf of diphtheria toxoid)[facility]04-05-2024tetanus and diphtheria toxoids, adsorbed, preservative free, for adult use (2 Lf of tetanus toxoid and 2 Lf of diphtheria toxoid)Jerald Hazel MD Work Phone: [employer] EducationRipley County Memorial HospitalFzvwznsdlw89-57-2568Tyypemqpv, Seasonal, Quadrivalent, AdjuvantedJerald Hazel MD Work Phone: [employer] EducationRipley County Memorial HospitalNcwimwksrz20-17-3555IYMA-DYP-7 (COVID-19) vaccine, mRNA, spike protein, LNP, bivalent, PFJerald Hazel MD Work Phone: [employer] EducationRipley County Memorial HospitalTqvtxlakkg64-61-4035Gnpztjhfz, Seasonal, Quadrivalent, AdjuvantedJerald Hazel MD Work Phone: [employer] EducationRipley County Memorial HospitalHnapxgtqzy69-42-0587ozoaqkrrifkz polysaccharide vaccine, 23 valParisa Hazel MD Work Phone: [employer] EducationRipley County Memorial HospitalDwprnsyiei82-03-5742wvwsiwclzwdf conjugate vaccine, 7 Vinny Hazel MD Work Phone: [facility] Payers DatePayer CategoryPayerPolicy [id number]-pay2022MedicaidAETNA MEDICARE ADVANTAGE [id number] 2022Medicarecare HMOAETNA MEDICARE [id number] 1960Medicare [id number] [id number]. [id number] 2.1.842717.3.57[id number] 2.1.800282.3.57[id number] 2.1.962283.3.57[id number] 2..1.136184.3.57[id number] 2.1.546209.3.57[id number] 2.16.840.1.815151.3.57[id number] 2..840.1.107110.3.57[id number] 2..840.1.018806.3.57[id number] 2..840.1.26[id number] 2..840.1.222197.3.579.2.531 Social History DateTypeDetailFacilityStart: 02-02-2023 End: 61-30-8721Liiuvuh smoking status NHISNever smoked tobacco (finding) [facility] Hospitaltart: 82-34-9630Jmf Assigned At BirthFemale Memorial Hospitaltart: 03-06-2022 End: 02-37-6613Srnnuqa use and exposureSmokeless tobacco non-userNOMS Healthcare Start: 02-10-2024 End: 22-71-9999Lgsjpoecu beverage intakeLifetime non-drinker (finding)[facility] HealthcareStart: 02-10-2024 End: 29-38-2798Iqrpfzd of Social functionNOWA HealthcareStart: 02-10-2024 End: 91-61-6337Mofexog use panelNOMS HealthcareStart: 47-05-8057Irc assigned at birthNot on fileNOWA HealthcareStart: 10-04-2014 End: 04-53-4591LeyDlgqul (finding)[facility] Hospitaltart: 14-67-0087Jfevawifo beverage intakeEx-drinker (finding)[facility] ChildcareUnknowMain Campus Medical Center System Functional Status FoovGqkxtpdyjtRocaawXnlncvxe92-70-4150Qtvuedr Health Questionnaire 2 item (PHQ- 2) [Reported][facility] Clinical Notes 03-10-2022 to 09-05-2024 Note Date & RnjvJzlhXxkugoyj10-87-6839 History of Present illness Narrative* Jerald Hazel MD - 09/05/2024 11:41 AM EDTAssociated Problem(s): Medicare annual wellness visit, subsequent Due for labs. Discussed proper diet and regular aerobic exercise. Need aerobic exercise 5-6 days a week for 30 minutes at a time. Smaller portions and limit total calories. Tetanus every 10 years. Advised not to smoke. * Jerald Hazel MD - 09/05/2024 11:00 AM EDT Images from the original note were not included. Subjective Patient ID: Marley Moralez is a 89 y.o. female who presents for Medicare Annual Wellness Visit Subsequent (Wellness/) and Tinnitus. Presents for medicare annual wellness visit. Patient feels well today. Weight down 11 pounds in thepast year. Tries to stay active around the house but no regular exercise. Tries to watch diet and eat healthy. Increased fruits and vegetables. Smaller portions and limits snacking. Tries to limit total daily calories. Due for labs. Review of Systems Respiratory: Negative for cough, shortness of breath and wheezing. Cardiovascular: Negative for chest pain and palpitations. Gastrointestinal: Negative for abdominal pain, diarrhea, nausea and vomiting. Genitourinary: Negative for dysuria. Objective Physical Exam Constitutional: General: She is not in acute distress. Appearance: Normal appearance. HENT: Head: Normocephalic. Right Ear: Tympanic membrane normal. Left Ear: Tympanic membrane normal. Eyes: Extraocular Movements: Extraocular movements intact. Pupils: Pupils are equal, round, and reactive to light. Cardiovascular: Rate and Rhythm: Normal rate and regular rhythm. Heart sounds: No murmur heard. No friction rub. No gallop. Pulmonary: Effort: Pulmonary effort is normal. Breath sounds: Normal breath sounds. No wheezing, rhonchi or rales. Abdominal: General: Bowel sounds are normal. There is no distension. Palpations: Abdomen is soft. Tenderness: There is no abdominal tenderness. There is no guarding or rebound. Musculoskeletal: General: No swelling or tenderness. Cervical back: Neck supple. Right lower leg: No edema. Left lower leg: No edema. Skin: Findings: No erythema or rash. Neurological: General: No focal deficit present. Mental Status: She is alert and oriented to person, place, and time. Cranial Nerves: No cranial nerve deficit. Motor: No weakness. Gait: Gait normal. Assessment/Plan Problem List Items Addressed This Visit Dyslipidemia Relevant Orders Lipid panel Prediabetes Relevant Orders Hemoglobin A1c Encounter for long-term current use of medication Relevant Orders Basic metabolic panel CBC and differential Hepatic function panel Medicare annual wellness visit, subsequent - Primary Due for labs. Discussed proper diet and regular aerobic exercise. Need aerobic exercise 5-6 days a week for 30 minutes at a time. Smaller portions and limit total calories. Tetanus every 10 years. Advised not to smoke. Other Visit Diagnoses Fatigue, unspecified type Relevant Orders TSH documented in this encounterCenterPointe HospitalMgykqmuozl73-68-4015 History of Present illness Narrative* HANS Santana - 08/23/2024 10:00 AM EDT Images from the original note were not included. [address] [place] [address] [facility] [address] Patient: Marley Moralez Date of : 1935 Encounter Date: 08/23/2024 History of Present Illness: The patient is a 89 y.o. female, a new patient, and is here for urinary concerns. She has significant urinary frequency/frequent bowel movements in the morning at night. During the day she is fine. It has been this way since she had a cholecystectomy in 2024. In early June she had some pain. She is not able to describe it any more than that. She was just sitting in the car at the time. She wasn't having any pain with urination but for some reason suspecteda UTI. She went [facility] ER on 07/07/24. I do not have her records but it sounds like shewas diagnosed with UTI and vaginitis. She was nystatin/triamcinolone and Keflex. I see a urine culture result from that day which came back contaminated. She reports that she saw her PCP and was toldthere was no infection and was sent in a new prescription. She does not know what it was. She never had any dysuria and no longer has the pain that she experienced in June. She never had anygross hematuria She states that she is not sure why she is here. She has no specific urinary concerns. PVR 3 cc's. Urinalysis today: Recent Labs 08/23/24 1022 EXTPOCURBS Negative EXTPOCUKET Negative EXTPOCUPRO Negative EXTPOCUNIT Negative EXTPOCUBLD Negative EXTPOCUPH 7.5 EXTPOCULEE Negative Last BUN and creatinine: Lab Results Component Value Date BUN 18.0 (A) 03/21/2019 Lab Results Component Value Date CREATININE 0.93 03/21/2019 Past Medical, Family, and Social History Update: The following portions of the patient's history were reviewed and updated as appropriate: allergies, current medications, past family history, past medical history, past social history, past surgicalhistory and problem list. Past Medical History: Diagnosis Date GERD (gastroesophageal reflux disease) High cholesterol Intervertebral disk disease Osteoporosis Visual impairment Past Surgical History: Procedure Laterality Date CHOLECYSTECTOMY COLONOSCOPY COSMETIC SURGERY 1979 ESOPHAGOGASTRODUODENOSCOPY N/A 03/19/2022 Performed by James Langston DO at [facility] ESOPHAGOGASTRODUODENOSCOPY DILATATION N/A 03/19/2022 Performed by James Langston DO at [facility] EYE SURGERY 2020 KNEE SURGERY Right 2017 TONSILLECTOMY Family History Problem Relation Age of Onset Stroke Mother Heart disease Father Alzheimer's disease Sister Arthritis Daughter Current Outpatient Medications Medication Sig Dispense Refill alendronate (FOSAMAX) 70 mg tablet Take 1 tablet (70 mg total) by mouth every 7 days. biotin 1 mg capsule Take 1 tablet by mouth in the morning. calcium carbonate-vitamin D3 (OSCAL 500 + D) 500 mg(1,250mg) -200 units per tablet Take 1 tablet bymouth in the morning and 1 tablet in the evening. Take with meals. fluticasone propionate (FLONASE) 50 mcg/actuation nasal spray Administer 1 spray into each nostril as needed. loratadine (CLARITIN REDITABS) 10 mg disintegrating tablet Dissolve 1 tablet (10 mg total) on tongue daily as needed for allergies. olopatadine (PATANOL) 0.1 % ophthalmic solution 1 drop in the morning and 1 drop before bedtime. pantoprazole (PROTONIX) 40 mg EC tablet Take 1 tablet (40 mg total) by mouth in the morning and at bedtime. 60 tablet 1 pyridoxine, vitamin B6, (B-6) 100 mg tablet Take 1 tablet (100 mg total) by mouth in the morning. simvastatin (ZOCOR) 40 mg tablet Take 1 tablet (40 mg total) by mouth nightly. No current facility-administered medications for this visit. (All medications reviewed and updated by provider since last office visit or hospitalization) Allergies: Patient has no known allergies. Tobacco History: Social History Tobacco Use Smoking Status Never Smokeless Tobacco Never (If patient a smoker, smoking cessation counseling offered) Social History: Social History Substance and Sexual Activity Alcohol Use Not Currently Review of Systems: Constitutional: Normal activity and energy. Patient denies change in appetite, weight loss or gain,malaise (depression), chills, fever, or diaphoresis (sweating). Eyes: Patient denies vision changes or diplopia (double vision). Ears, Nose, Nose and Throat: Patient denies tinnitus (ringing in ears), hearing loss, epistaxis (nose bleed), hoarseness, and dysphagia (hard to swallow). Respiratory: Patient denies dyspnea (shortness of breath), cough, hemotypsis (blood in sputum), andwheezing. Cardiovascular: Patient denies chest pain, palpitations, and shortness of breath. Gastrointestinal: Patient denies abdominal pain, nausea, vomiting, bloating, diarrhea (chronic), constipation (chronic), melena (black stool), hematochezia (blood in stool). Musculoskeletal: Patient denies joint pain/stiffness, weakness, swelling, and backache. Neurologic: Patient denies weakness, dizziness, loss of consciousness, transient ischemic symptoms,and seizures. Integument: Patient denies rashes and non-healing lesions. Psychiatric: Patient denies increased nervousness, mood changes, or depression. Endocrine: Patient denies thyroid trouble, heat or cold intolerance, diabetes, excessive thirst, hunger, and excessive urination. Blood Disorders: Patient denies anemia, easy bruising, and easy bleeding. Physical Exam: BP 154/81 Pulse 65 Ht 162.6 cm (5' 4 ) BMI 26.09 kg/m Constitutional: She appears well-developed. No distress. HENT: Head: Atraumatic. Nose: Nose normal. Eyes: Conjunctivae are normal. Pulmonary/Chest: Effort normal. No respiratory distress. Neurological: She is alert and oriented for age. Gait normal. Psychiatric: She has a normal mood and affect. Her speech is normal. Nursing note and vitals reviewed. Assessment and Plan: Marley was seen today for urinary frequency and urinary tract infection. Diagnoses and all orders for this visit: Urinary frequency - Measure post void residual - POCT Urinalysis Auto, W/O Microscopy Problem List Other Urinary frequency - Primary Overview 08/23/24: I have requested records. UA today is negative and PVR is 3. She has issues with frequencyduring the day and evening, but attributes this more to frequent bowel movements. She has no specific urinary concerns. I am not sure why she was referred to us, so I need to review the notes from her PCP and from [facility]. If there were no other concerns, we can see her back on an as-needed basis. Relevant Orders Measure post void residual (Completed) POCT Urinalysis Auto, W/O Microscopy (Completed) Follow-up: As needed HANS SANTANA This note was created with the assistance of a speech recognition program. While intending to generate a timely document that accurately reflects the content of the visit, no guarantee can be provided that every grammatical or spelling mistake has been or will be identified or corrected. Thank you for your understanding. HANS Santana 08/23/24 1043 [facility] Evaluation [facility]* Diagnosis Onset Date Resolution Status Admit Date Acute sinusitis acuteApril 2024 11:18am [facility] Work Phone: [phone]) 448-341012-12-2024 History of Present illness Narrative* Jerald Hazel MD - 02/10/2024 11:19 AM ESTAssociated Problem(s): Chronic osteoarthritis Pain stable and continue with increased activity and stretches. Use OTC PRN. * Jerald Hazel MD - 02/10/2024 11:19 AM ESTAssociated Problem(s): Chronic constipation Occasional symptoms and continue daily fiber supplement. Use OTC miralax PRN. * Jerald Hazel MD - 02/10/2024 11:19 AM ESTAssociated Problem(s): Snyder's esophagus Symptoms controlled with protonix and continue. * Jerald Hazel MD - 02/10/2024 11:00 AM EST Images from the original note were not included. Subjective Patient ID: Marley Moralez is a 88 y.o. female who presents for Follow-up (6m ). Follow up OA, GERD, and constipation. Patient stable today. OA slightly worse but tolerable. Pain in right thumb and wrist. 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 Pain in neck, back, legs, and hips. Pain worse with walking and standing. Performing home exercises and stretches which have helped. Using OTC PRN and helps. Stiff and sore in am but improved once up and moving. GERD controlled with protonix. Denies epigastric pain or burning and not waking up with symptoms. Constipation improved with OTC fiber supplement. BM daily and not straining or passing hard stool. Taking miralax PRN which helps. Review of Systems Respiratory: Negative for cough, shortness of breath and wheezing. Cardiovascular: Negative for chest pain and palpitations. Gastrointestinal: Negative for abdominal pain, diarrhea, nausea and vomiting. Genitourinary: Negative for dysuria. Objective Physical Exam Constitutional: General: She is not in acute distress. Appearance: Normal appearance. HENT: Head: Normocephalic. Right Ear: Tympanic membrane normal. Left Ear: Tympanic membrane normal. Eyes: Extraocular Movements: Extraocular movements intact. Pupils: Pupils are equal, round, and reactive to light. Cardiovascular: Rate and Rhythm: Normal rate and regular rhythm. Heart sounds: No murmur heard. No friction rub. No gallop. Pulmonary: Effort: Pulmonary effort is normal. Breath sounds: Normal breath sounds. No wheezing, rhonchi or rales. Abdominal: General: Bowel sounds are normal. There is no distension. Palpations: Abdomen is soft. Tenderness: There is no abdominal tenderness. There is no guarding or rebound. Musculoskeletal: Cervical back: Neck supple. Right lower leg: No edema. Left lower leg: No edema. Neurological: Mental Status: She is alert. Assessment/Plan Problem List Items Addressed This Visit Snyder's esophagus Symptoms controlled with protonix and continue. Relevant Medications pantoprazole (ProtoNix) 40 MG EC tablet Chronic constipation Occasional symptoms and continue daily fiber supplement. Use OTC miralax PRN. Chronic osteoarthritis - Primary Pain stable and continue with increased activity and stretches. Use OTC PRN. documented in this encounterCenterPointe [id number] NoteEducation Materials Cardiovascular Hypertension, Adult Blood pressure 190/77 Your blood pressure was noted to be elevated here in the emergency room. Monitor your blood pressure and follow-up with your primary care physician to review those readings. Return to the emergency department for any worsening symptoms. Hypertension is another name for high blood pressure. High blood pressure forces your heart to workharder to pump blood. This can cause problems [...] at each meal with low-fat (lean) proteins. Low- fat proteins includefish, chicken without skin, eggs, beans, and tofu. [...] your heart to beat faster (aerobic exercise) mostdays of the week. This may include walking, swimming, or biking. ? Get at least 30 minutes of exercise that strengthens your muscles (resistance exercise) at least 3 days a week. This may include lifting weights or doing Pilates. ? Do not smoke or use any products that contain nicotine or tobacco. If you need help quitting, askyour doctor. ? Check your blood pressure at home as told by your doctor. ? Keep all follow-up visits. Medicines ? Take htuc-xyi-[id number] and prescription medicines only as told by [...] may be an em (more content not included)...[facility] 03-10-2022 NotePROCEDURE: XR ESOPHAGUS, XR CINERADIOGRAPHY COMPARISON: None. HISTORY: Gastroesophageal reflux [...] Electronically authenticated by: MICHAEL WHITE Date: 2022-03-10 14:02[facility]01-10-2023 NotePROCEDURE: XR ESOPHAGUS, XR CINERADIOGRAPHY COMPARISON: None. HISTORY: Gastroesophageal reflux [...] Electronically authenticated by: MICHAEL WHITE Date: 2022-03-10 14:02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 Chronic constipation Unspecified constipation Acute non-recurrent pansinusitis Chronic osteoarthritis- Primary Osteoarthrosis, unspecified whether generalized or localized, unspecified site 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 HealthcareInstructionsNot on filedocumented in this encounterDetwiler [facility] System Summary Purpose Family History No Family History Records Found Relationship Condition Age at Onset Recorded Date/T jessica father Heart disease Unknown sisterHeart diseaseUnknown Relationship Condition Age at Onset Recorded Date/T jessica father Heart disease Unknown sisterHeart diseaseUnknownmotherCerebrovascular accident (CVA)Unknown Advance Directives No Advanced Directives Records Found Advance Directive Response Recorded Date/ Time Advance Directives No May 07 1:39pm Chief Complaint and Reason for Visit Chief Complaint Admit Date cough, congestion June 17, 2024 11: 18am Unknown July 07, 2024 1:50pm Reason for Visit Admit Date Acute sinusitis June 17, 2024 11: 18am Chief Complaint left foot stepped on nail (nail not in) Chief Complaint Admit Date cough, congestion June 17, 2024 11: 18am Additional Source Comments INFORMATION SOURCE (unrecogn ized section and content) DATE CREATED AUTHOR 03/13/[address] [facility] DATE CREATED AUTHOR AUTHOR'S ORGANIZ ATION 06/10/2023 [facility] DATE CREATED AUTHOR AUTHOR'S ORGANIZ ATION 07/10/2024 [facility] DATE CREATED AUTHOR AUTHOR'S ORGANIZ ATION 08/24/2024 [facility] DATE CREATED AUTHOR AUTHOR'S ORGANIZ ATION 09/09/2024 [facility] DATE CREATED AUTHOR AUTHOR'S ORGANIZ ATION 09/10/2024 [facility] Care Teams (unrecognized sec tion and content) Team Status: Active Member Role Status Dates Jerald Hazel MD Primary Care Provider Active Team Status: Inactive Member Role Status Dates Jerald Hazel MD Primary Care Provider Active S tart: October 19, 2023 End: October 18miroslava JorgeCommonwealth [facility] , APRNAttenencompass health rehabilitation [facility] ProviderActiveStart: October 19, 2023 End: October 19, 2023Team MemberRelationshipSpecialtyStart DateEnd Date Jerald Hazel MD [address] [place] [phone] PCP - GeneralFamily Hxzyahye19/13/23 Jerald Hazel MD [address] [place] [phone] PCP - [employer]04/01/23Team MemberRelationshipSpecialtyStart DateEnd Date Jerald Hazel MD [address] [place] [phone] PCP - [facility]01/11/23 Jerald Hazel MD [address] [place] [phone] PCP - [facility]04/01/23 Team Status: Inactive Member Role Status Dates Jerald Hazel MD Primary Care Provider Active S tart: June 17, 2024 End: June 17, 2024Alejo Hyde ProviderActiveStart: June 17, 2024 End: June 17, 2024Team MemberRelationshipSpecialtyStart DateEnd Date Jerald Hazel MD [address] [place] [phone] PCP - [facility]01/11/23 Jerald Hazel MD [address] [place] [phone] [facility]04/01/23 Team Status: Inactive Member Role Status Dates Kathy Leon PA-C Attending Provider Active Start: July 07, 2024 End: July 07, 2024Team MemberRelationshipSpecialtyStart DateEnd Date Jerald Hazel MD PCP - [facility]01/24/18Team MemberRelationshipSpecialtyStart Date End Date Jerald Hazel MD [address] [place] [phone] PCP [facility]01/11/23 Jerald Hazel MD [address] [place] [phone] PCP - [facility]04/01/23Team MemberRelationshipSpecialtyStart DateEnd Date Jerald Hazel MD [address] [place] [phone] PCP [facility]01/11/23 Jerald Hazel MD [address] [place] [phone] PCP [facility]04/01/23Te MemberRelationshipSpecialtyStart DateEnd Date Jerald Hazel MD [address] [place] [phone] [facility]01/11/23 Jerald Hazel MD [address] [place] [phone] PCP - [facility]04/01/23 Goals (unrecognized section and content) Goals may be documented in a n alternate sectionGoals may be documented in an alternate sectionGoals may be documented in an alternate sectionNot on filedocumented as of this encounter Reason for Visit (unrecogniz ed section and content) ReasonCommentsFollow-le3qWuhfveMwmabwnkQkbdfph FrequencyUrinary Tract Infection ReasonCommentsMedicare Annual Wellness Visit SubsequentWellnessTinnitus FOR RECORDS PERTAINING TO PATIENTS WHO ARE [...] BE BASED ON THE PRIMARY CLINICAL RECORDS. [facility]. provides no warranty or guarantee of the accuracy or completeness of information in this document.
[2025-01-18 10:18] LABS: Hematocrit 41.4 % (36.0-48.0); Hemoglobin 13.6 g/dL (12.0-16.0); Immature Granulocytes Abs Auto 0.02 10^3/uL (0.00-0.03); Immature Granulocytes Pct Auto 0.2 % (0.0-0.5); Lymphocytes Absolute Auto 2.1 10^3/uL (1.2-3.8); Mean Corpuscular HGB Conc 32.9 g/dL (29.9-35.2); Mean Corpuscular Hemoglobin 29.3 pg (26.7-34.0); Mean Corpuscular Volume 89.2 fL (81.0-99.0); Platelet Count 299 10^3/uL (150-450); Red Blood Count 4.64 10^6/uL (4.20-5.40); White Blood Count 12.2 10^3/uL (4.0-11.0)
[2025-01-18 10:52] LABS: Alanine Aminotransferase 19 U/L (14-59); Albumin Globulin Ratio 1.1; Albumin Level 3.5 g/dL (3.4-5.0); Alkaline Phosphatase 72 U/L (46-116); Anion Gap 12.1; Aspartate Amino Transferase 17 U/L (15-37); Blood Urea Nitrogen 17.0 mg/dL (7.0-18.0); Calcium 8.7 mg/dL (8.5-10.1); Carbon Dioxide 27.9 mmol/L (21.0-32.0); Chloride 109 mmol/L (98-107); Estimated GFR (African America >60 (>=60 mL/min/1.73m^2); Estimated GFR (Non-African Ame 60 (>=60 mL/min/1.73m^2); Globulin 3.2 g/dL; Glucose 119 mg/dL (74-106); Potassium 4.0 mmol/L (3.5-5.1); Sodium 145 mmol/L (136-145); Total Protein 6.7 g/dL (6.4-8.2)
== END 2025-01-18 09:53 | disposition home or self-care (01) ==
LOC: LAB 09:54
PROVIDERS: PCP Family Medicine; Visit Provider Family Medicine
DX: R04.2 Hemoptysis (principal); J01.90 Acute sinusitis, unspecified; B96.89 Other specified bacterial agents as the cause of diseases classified elsewhere
CPT/HCPCS: 36415; 71046; 80053; 85025